=== PATIENT | female | born 1945 | race African-American/Black ===

== ENCOUNTER 2017-02-12 11:08 | Inpatient (IN) | payer MEDICARE, OTHER ==
[~2017-02-12] VITALS: Ht 165.1 cm; Wt 93.4 kg
[~2017-02-12 11:08] MED LIST: AMLO10TA4 PO; ASPI81TA31 PO; LORA1TAB PO; METF10002 PO; TRAM50TA2 PO
[2017-02-12 14:30] VITALS: BP 126/78
[2017-02-12] MEDS: FUROSEMIDE 40 MG TABLET PO SCH (17:22)
[2017-02-12] MEDS: hydrALAZINE HCL 50 MG TABLET PO SCH (17:25)
[2017-02-12] MEDS: ISOSORBIDE DINITRATE 20 MG TABLET PO SCH (17:27)
[2017-02-12] MEDS: CARVEDILOL 25 MG TABLET PO SCH (17:29)
[2017-02-12] MEDS: ATORVASTATIN 20 MG TABLET PO SCH (20:56)
[2017-02-12] MEDS: FERROUS SULFATE 325 MG TABEC PO SCH (20:56)
[2017-02-13 00:10] VITALS: BP 120/69
[2017-02-13 08:20] VITALS: BP 158/82
[2017-02-13] MEDS: CARVEDILOL 25 MG TABLET PO SCH ×2 (08:47→17:10)
[2017-02-13] MEDS: ASPIRIN 81 MG TAB.CHEW PO SCH (08:48)
[2017-02-13] MEDS: hydrALAZINE HCL 50 MG TABLET PO SCH ×3 (08:48→17:10)
[2017-02-13] MEDS: AMLODIPINE 10 MG TABLET PO SCH (08:48)
[2017-02-13] MEDS: ISOSORBIDE DINITRATE 20 MG TABLET PO SCH ×3 (08:49→17:11)
[2017-02-13] MEDS: FUROSEMIDE 40 MG TABLET PO SCH ×2 (08:49→17:10)
[2017-02-13] MEDS: FERROUS SULFATE 325 MG TABEC PO SCH ×2 (08:49→20:21)
[2017-02-13] MEDS: ATORVASTATIN 20 MG TABLET PO SCH (20:21)
[2017-02-13] MEDS: ZOLPIDEM 5 MG TABLET PO PRN (23:16)
[2017-02-13] MEDS ORDERED: ZOLPIDEM 5 MG TABLET ONE (23:22)
[2017-02-13 23:44] VITALS: BP 127/56
[2017-02-14 07:47] VITALS: BP 142/62
[2017-02-14] MEDS: FERROUS SULFATE 325 MG TABEC PO SCH ×2 (09:54→20:45)
[2017-02-14] MEDS: AMLODIPINE 10 MG TABLET PO SCH (09:54)
[2017-02-14] MEDS: ASPIRIN 81 MG TAB.CHEW PO SCH (09:54)
[2017-02-14] MEDS: FUROSEMIDE 40 MG TABLET PO SCH ×2 (09:54→17:43)
[2017-02-14] MEDS: CARVEDILOL 25 MG TABLET PO SCH ×2 (09:54→17:44)
[2017-02-14] MEDS: ISOSORBIDE DINITRATE 20 MG TABLET PO SCH ×3 (09:55→17:44)
[2017-02-14] MEDS: hydrALAZINE HCL 50 MG TABLET PO SCH ×3 (09:55→17:43)
[2017-02-14 12:56] VITALS: BP 114/55
[2017-02-14 20:00] VITALS: BP 137/61
[2017-02-14] MEDS: ATORVASTATIN 20 MG TABLET PO SCH (20:45)
[2017-02-14] MEDS: ZOLPIDEM 5 MG TABLET PO PRN (22:48)
[2017-02-15] MEDS: CARVEDILOL 25 MG TABLET PO SCH ×2 (08:03→17:59)
[2017-02-15] MEDS: hydrALAZINE HCL 50 MG TABLET PO SCH ×3 (09:28→17:04)
[2017-02-15] MEDS: AMLODIPINE 10 MG TABLET PO SCH (09:28)
[2017-02-15] MEDS: FERROUS SULFATE 325 MG TABEC PO SCH ×2 (09:29→20:17)
[2017-02-15] MEDS: ASPIRIN 81 MG TAB.CHEW PO SCH (09:29)
[2017-02-15] MEDS: FUROSEMIDE 40 MG TABLET PO SCH ×2 (09:29→17:04)
[2017-02-15] MEDS: ISOSORBIDE DINITRATE 20 MG TABLET PO SCH ×3 (09:30→17:00)
[2017-02-15 12:30] VITALS: BP 133/61
[2017-02-15 20:00] VITALS: BP 131/61
[2017-02-15] MEDS: ATORVASTATIN 20 MG TABLET PO SCH (20:17)
[2017-02-15] MEDS: ZOLPIDEM 5 MG TABLET PO PRN (23:30)
[2017-02-16] MEDS: ASPIRIN 81 MG TAB.CHEW PO SCH (08:19)
[2017-02-16] MEDS: CARVEDILOL 25 MG TABLET PO SCH ×2 (08:20→17:53)
[2017-02-16] MEDS: FERROUS SULFATE 325 MG TABEC PO SCH ×2 (08:20→23:05)
[2017-02-16] MEDS: hydrALAZINE HCL 50 MG TABLET PO SCH ×3 (08:20→17:00)
[2017-02-16] MEDS: AMLODIPINE 10 MG TABLET PO SCH (08:21)
[2017-02-16] MEDS: FUROSEMIDE 40 MG TABLET PO SCH ×2 (08:21→17:47)
[2017-02-16] MEDS: ISOSORBIDE DINITRATE 20 MG TABLET PO SCH ×3 (08:29→17:52)
[2017-02-16 09:56] VITALS: BP 140/71
[2017-02-16 19:30] VITALS: BP 138/69
[2017-02-16 22:17] VITALS: BP 127/59
[2017-02-16] MEDS: ZOLPIDEM 5 MG TABLET PO PRN (23:05)
[2017-02-16] MEDS: ATORVASTATIN 20 MG TABLET PO SCH (23:05)
[2017-02-17] MEDS: CARVEDILOL 25 MG TABLET PO SCH ×2 (08:00→18:00)
[2017-02-17] MEDS: hydrALAZINE HCL 50 MG TABLET PO SCH ×3 (08:48→17:00)
[2017-02-17] MEDS: AMLODIPINE 10 MG TABLET PO SCH (08:50)
[2017-02-17] MEDS: FUROSEMIDE 40 MG TABLET PO SCH ×2 (08:51→18:21)
[2017-02-17] MEDS: FERROUS SULFATE 325 MG TABEC PO SCH ×2 (08:51→20:46)
[2017-02-17] MEDS: ASPIRIN 81 MG TAB.CHEW PO SCH (08:51)
[2017-02-17] MEDS: ISOSORBIDE DINITRATE 20 MG TABLET PO SCH ×3 (08:52→17:00)
[2017-02-17 14:10] VITALS: BP 126/66
[2017-02-17] MEDS: ATORVASTATIN 20 MG TABLET PO SCH (20:46)
[2017-02-17 21:15] VITALS: BP 143/65
[2017-02-17] MEDS: ZOLPIDEM 5 MG TABLET PO PRN (22:59)
[2017-02-18 08:45] VITALS: BP 165/86
[2017-02-18] MEDS: CARVEDILOL 25 MG TABLET PO SCH (08:57)
[2017-02-18] MEDS: ASPIRIN 81 MG TAB.CHEW PO SCH (08:58)
[2017-02-18] MEDS: FERROUS SULFATE 325 MG TABEC PO SCH (08:58)
[2017-02-18] MEDS: hydrALAZINE HCL 50 MG TABLET PO SCH ×2 (08:58→13:00)
[2017-02-18] MEDS: ISOSORBIDE DINITRATE 20 MG TABLET PO SCH ×2 (08:59→13:00)
[2017-02-18] MEDS: FUROSEMIDE 40 MG TABLET PO SCH (08:59)
[2017-02-18] MEDS: AMLODIPINE 10 MG TABLET PO SCH (08:59)
[2017-02-18] MEDS ORDERED: CLONIDINE TTS 2 PATCH TD SCH (09:00)
[2017-02-18] MEDS ORDERED: METF-495 PO (12:37)
[2017-02-18] MEDS ORDERED: METF10002 PO (12:38)
[2017-02-18 13:00] VITALS: BP 115/63
[2017-02-18] MEDS ORDERED: CLONIDINE-TTS 1 PATCH TD SCH (16:00)
== END 2017-02-18 14:30 | disposition home or self-care (01) | DRG 291 ==
PROVIDERS: ADMIT Physical Medicine & Rehabilitation Pain Medicine; ATTEND Physical Medicine & Rehabilitation Pain Medicine
DX: I13.0 Hypertensive heart and chronic kidney disease with heart failure and stage 1 through stage 4 chronic kidney disease, or unspecified chronic kidney disease (principal); I50.33 Acute on chronic diastolic (congestive) heart failure; N18.2 Chronic kidney disease, stage 2 (mild); E66.9 Obesity, unspecified; Z68.34 Body mass index [BMI] 34.0-34.9, adult; Z90.5 Acquired absence of kidney; Z87.442 Personal history of urinary calculi; E78.5 Hyperlipidemia, unspecified; K21.9 Gastro-esophageal reflux disease without esophagitis; G89.29 Other chronic pain; M54.5 Low back pain; I25.2 Old myocardial infarction; Z88.6 Allergy status to analgesic agent; Z88.1 Allergy status to other antibiotic agents; Z88.0 Allergy status to penicillin; Z88.2 Allergy status to sulfonamides; Z88.8 Allergy status to other drugs, medicaments and biological substances
CPT/HCPCS: 92506; 97001; 97003; 97110; 97112; 97116; 97530; 97535; A4663

== ENCOUNTER 2017-05-14 19:03 | Inpatient (IN) | payer MEDICARE, OTHER ==
[~2017-05-14] VITALS: Ht 165.1 cm; Wt 90.3 kg
[~2017-05-14 19:03] MED LIST changes: -TRAM50TA2 PO
[2017-05-14 20:00] VITALS: BP 131/68
[2017-05-15] VITALS (13 sets, daily range): BP systolic 113–167; BP diastolic 49–88
[2017-05-15] MEDS ORDERED: ZOLP5TAB8 PO (00:03)
[2017-05-15] MEDS ORDERED: ATOR20TA PO (00:03)
[2017-05-15] MEDS ORDERED: NIFE30TA89 PO (00:03)
[2017-05-15] MEDS ORDERED: PANT40TA4 PO (00:03)
[2017-05-15] MEDS ORDERED: DOXA2TAB2 PO (00:03)
[2017-05-15] MEDS ORDERED: ENOX40DI SQ (00:03)
[2017-05-15] MEDS ORDERED: CLON0.3T PO (00:03)
[2017-05-15] MEDS ORDERED: ISOS40TA16 PO (00:03)
[2017-05-15] MEDS ORDERED: CARI350T27 PO (00:03)
[2017-05-15] MEDS ORDERED: CARV25TA2 PO (00:03)
[2017-05-15] MEDS ORDERED: HYDR100T27 PO (00:03)
--- NOTE | 2017-05-15 00:05 | NUR ---
HOME MED LIST COMPLETED. DR KATHI VIDAL NOTIFIED TO COMPLETE THE MED RECONCILIATION PART FOR THIS PATIENT. HE STATED " HE DOESN'T KNOW THIS PATIENT AND IT WILL NEED TO BE DONE IN THE MORNING BY WHOEVER DOES THE H&P.TMS PRINTED AND PLACED IN THE HARD CHART.
[2017-05-15] MEDS: ZOLPIDEM 5 MG TABLET PO PRN (00:20)
[2017-05-15] MEDS ORDERED: ZOLPIDEM 5 MG TABLET ONE (00:30)
--- NOTE | 2017-05-15 06:00 | NUR ---
1930-PT RECEIVED FROM [facility], PT ALERT ,ORIENTED, AMBULATES WITH CANE. DENIES ANY PAIN, SOB ON EXERTION KEPT ON 2 LITERS OXYGEN OVERNIGHT, NO ACUTE DISTRESS. HAD BED BATH, ASSISTED WITH ALL NEEDS ,SKIN INTACT AND DRY.AWAITING FOR ORDERS TODAY , ESTUARDO VIDAL NO GIVING ORDERS AND WILL F/FUP WITH EPIC IN AM.VSS,AFEBRILE, ALL NEEDS ATTENDED, SLEPT WELL AFTER AMBIEN GIVEN.WILL CONTINUE TO MONITOR CALL LIGHT AT REACHED.
[2017-05-15] MEDS ORDERED: ZOLPIDEM 5 MG TABLET PO PRN (08:00)
[2017-05-15] MEDS: ASPIRIN 81 MG TAB.CHEW PO SCH (09:23)
[2017-05-15] MEDS: NIFEdipine XL 30 MG TABSR PO SCH (09:23)
[2017-05-15] MEDS: CARISOPRODOL 350 MG TABLET PO SCH ×3 (09:23→17:00)
[2017-05-15] MEDS: CARVEDILOL 25 MG TABLET PO SCH ×2 (09:23→21:31)
[2017-05-15 09:30] LABS: BASOPHILS % (AUTO) 0.2 % (0.0-2.0); EOSINOPHILS # (AUTO) 1.3 K/uL (0.0-0.7); EOSINOPHILS % (AUTO) 19.5 % (0.0-7.0); HEMOGLOBIN 7.6 G/DL (12.0-16.0); LYMPHOCYTES # (AUTO) 0.5 K/UL (0.8-4.8); LYMPHOCYTES % (AUTO) 8.1 % (20.5-51.5); MEAN CORPUSCULAR HEMOGLOBIN 26.1 UUG (27.0-31.0); MEAN CORPUSCULAR HGB CONC 32 g/dL (32.0-37.0); MEAN CORPUSCULAR VOLUME 80.7 FL (81.0-99.0); MONOCYTES # (AUTO) 0.3 K/UL (0.1-1.30); MONOCYTES % (AUTO) 5.1 % (0.0-11.0); NEUTROPHILS # (AUTO) 4.6 K/UL (1.8-8.9); NEUTROPHILS % (AUTO) 67.1 % (38.5-71.5); PLATELET COUNT (AUTO) 245 K/UL (150-450); RED BLOOD CELL COUNT(AUTO) 2.89 MIL/UL (4.2-5.4); WHITE BLOOD COUNT (AUTO) 6.7 K/UL (4.0-11.2)
[2017-05-15 09:38] LABS: CARBON DIOXIDE 25 mmol/L (21-32); CHLORIDE 107 mmol/L (98-107); CREATININE 2.1 mg/dL (0.6-1.3); GLUCOSE 150 mg/dL (74-106); MAGNESIUM 2.4 mg/dL (1.8-2.4); PHOSPHOROUS 4.5 mg/dL (2.5-4.9); UREA NITROGEN, BLOOD 34 mg/dL (7-18)
[2017-05-15 09:40] LABS: HEMATOCRIT 23.4 % (37-47)
[2017-05-15 09:54] LABS: EOSINOPHILS % (MANUAL) 17 % (0-8); LYMPHOCYTES % (MANUAL) 8 % (20-40); MONOCYTES % (MANUAL) 1 % (2-10); NEUTROPHILS % (MANUAL) 74 % (42-75)
[2017-05-15] MEDS ORDERED: ENOXAPARIN SODIUM 40 MG/0.4 ML DISP.SYRIN SQ SCH (09:54)
--- NOTE | 2017-05-15 10:00 | NUR ---
CRITICAL LAB VALUE REPORTED TO DR. STRONG HCT-23.[address] ORDERED FOR OB ONCE, PRBCS 2 UNITS. LASIX 20 MG IV PUSH BETWEEN PRBC UNITS
[2017-05-15] MEDS ORDERED: FUROSEMIDE 20 MG/2 ML VIAL IV PRN (10:30)
--- NOTE | 2017-05-15 12:27 | NUR ---
ordered blood transfusion. consent signed. all orders done including type and screen with 2 PRBC ordered. red band on. all checks done. Ariel MAHAN from emergency called to insert IV. recommended to have a midline. MD Ramírez ordered for a midline insertion. notified flor supervisor roving department. was intructed to call for midline nurse.
[2017-05-15] MEDS: hydrALAZINE HCL 50 MG TABLET PO SCH ×2 (13:05→21:32)
--- NOTE | 2017-05-15 13:14 | NUR ---
FOLLOW UP MIDLINE INSERTION FOR PATIENT. INFORMED CARYN INTELLIGENCE INTERN
--- NOTE | 2017-05-15 16:00 | NUR ---
FOLLOW UP MIDLINE INSERTION WITH CARYN, COMPUTER NETWORK AND SYSTEMS ENGINEER. SAYS NEGRITO TRUONG ON HIS WAY FOR INSERTION
--- NOTE | 2017-05-15 17:20 | NUR ---
MIDLINE INSERTED BY ALEXI/NEGRITO OVER LEFT UPPER ARM. PATENT
--- NOTE | 2017-05-15 17:46 | NUR ---
BLOOD TRANSFUSION STARTED ABOUT 350 ML TO RUN AT 125ML/HR WITH UNIT # [id number]. VERIFIED AND WITNESSED BY YOON/RN AND FITO/RN.
--- NOTE | 2017-05-15 18:30 | NUR ---
Blood infusing well. No SOB, itching or other S/S of adverse reaction noted. V/S checked,WNL. Offered Soma, but patient refused medication, even after discussion of risks and benefits. Patient refused to take anything because said she is having blood transfusion
[2017-05-15] MEDS: DOXAZOSIN 2 MG TABLET PO SCH (21:31)
[2017-05-15] MEDS: ISOSORBIDE DINITRATE 20 MG TABLET PO SCH (21:32)
[2017-05-15] MEDS: ATORVASTATIN 20 MG TABLET PO SCH (21:34)
--- NOTE | 2017-05-15 22:40 | NUR ---
c/o bleeding noted from right nostril, ice pack placed overhead, packing applied and bleeding stop after few minutes. vss,afebrile.
--- NOTE | 2017-05-15 23:45 | NUR ---
completed second unit of PRBC without any adverse effects,vss,afebrile. all needs attended call light at reached.
[2017-05-16] MEDS: ZOLPIDEM 5 MG TABLET PO PRN ×2 (00:10→22:57)
[2017-05-16] MEDS: PANTOPRAZOLE SODIUM 40 MG TABLET.DR PO SCH (05:27)
[2017-05-16] MEDS: hydrALAZINE HCL 50 MG TABLET PO SCH ×3 (05:36→22:00)
--- NOTE | 2017-05-16 06:37 | NUR ---
pt slept after ambien, no more episode of nosebleed, ambulates to bathroom and have bm, am care assisted. verbalized slight sob when ambulating without oxygen but no acute distress. will continue to monitor.vss,afebrile
[2017-05-16 08:50] VITALS: BP 141/71
[2017-05-16] MEDS: ISOSORBIDE DINITRATE 20 MG TABLET PO SCH ×2 (09:43→21:26)
[2017-05-16] MEDS: NIFEdipine XL 30 MG TABSR PO SCH (09:44)
[2017-05-16] MEDS: ASPIRIN 81 MG TAB.CHEW PO SCH (09:45)
[2017-05-16] MEDS: CARVEDILOL 25 MG TABLET PO SCH ×2 (09:45→21:26)
[2017-05-16] MEDS: CARISOPRODOL 350 MG TABLET PO SCH ×3 (09:45→17:00)
[2017-05-16] MEDS: ENOXAPARIN SODIUM 30 MG/0.3 ML DISP.SYRIN SQ SCH (09:47)
--- NOTE | 2017-05-16 10:00 | NUR ---
Dr. Ramírez in the unit with order to test stool for C-diff. Order carried out. Patient made aware.
[2017-05-16 14:09] LABS: *OCCULT BLOOD STOOL POSITIVE (NEGATIVE)
--- NOTE | 2017-05-16 14:46 | NUR ---
DAILY NOTE ORDER FOR STOOL FOR CDIFF X1 COMPLETED ORDERED. SPECIMEN SENT TO THE LAB. SHE HAS HAD 3 EPISODES OF DIARRHEA THROUGHOUT THE SHIFT SO FAR.
--- NOTE | 2017-05-16 19:30 | NUR ---
PT ALERT AND ORIENTED IN BED. NO DISTRESS NOTED. MIDLINE INTACT. FAMILY AT BEDSIDE. SAFETY MAINTAINED. CALL LIGHT WITHIN REACH. BED ALARM ON. WILL CONTINUE TO MONITOR.
[2017-05-16 20:13] VITALS: BP 142/73
[2017-05-16] MEDS: ATORVASTATIN 20 MG TABLET PO SCH (21:24)
[2017-05-16] MEDS: DOXAZOSIN 2 MG TABLET PO SCH (21:25)
[2017-05-17] MEDS: hydrALAZINE HCL 50 MG TABLET PO SCH ×3 (05:32→22:00)
[2017-05-17] MEDS: PANTOPRAZOLE SODIUM 40 MG TABLET.DR PO SCH (06:39)
--- NOTE | 2017-05-17 06:53 | NUR ---
PT ALERT AND ORIENTED IN BED. NO DISTRESS NOTED. MIDLINE INTACT. NO SIGNIFICANT CHANGES THROUGHOUT THE NIGHT. SAFETY MAINTAINED. CALL LIGHT WITHIN REACH.
[2017-05-17 07:30] VITALS: BP 177/95
[2017-05-17 07:42] LABS: BASOPHILS % (AUTO) 0.5 % (0.0-2.0); EOSINOPHILS # (AUTO) 1.3 K/uL (0.0-0.7); EOSINOPHILS % (AUTO) 17.9 % (0.0-7.0); LYMPHOCYTES # (AUTO) 0.6 K/UL (0.8-4.8); LYMPHOCYTES % (AUTO) 8.4 % (20.5-51.5); MEAN CORPUSCULAR HEMOGLOBIN 27.4 UUG (27.0-31.0); MEAN CORPUSCULAR HGB CONC 33 g/dL (32.0-37.0); MEAN CORPUSCULAR VOLUME 83.5 FL (81.0-99.0); MONOCYTES # (AUTO) 0.4 K/UL (0.1-1.30); MONOCYTES % (AUTO) 6.2 % (0.0-11.0); NEUTROPHILS # (AUTO) 4.9 K/UL (1.8-8.9); PLATELET COUNT (AUTO) 276 K/UL (150-450); WHITE BLOOD COUNT (AUTO) 7.2 K/UL (4.0-11.2)
[2017-05-17 07:53] LABS: RED BLOOD CELL COUNT(AUTO) 3.57 MIL/UL (4.2-5.4)
[2017-05-17 07:54] LABS: HEMATOCRIT 29.8 % (37-47); HEMOGLOBIN 9.8 G/DL (12.0-16.0)
[2017-05-17 08:06] LABS: ALANINE AMINOTRANSFERASE 15 U/L (14-59); ALKALINE PHOSPHATASE 40 U/L (50-136); ASPARTATE AMINOTRANSFERASE 14 U/L (15-37); BILIRUBIN,TOTAL 0.3 mg/dL (0.2-1.0); CARBON DIOXIDE 25 mmol/L (21-32); CHLORIDE 110 mmol/L (98-107); CREATININE 1.9 mg/dL (0.6-1.3); GLUCOSE 152 mg/dL (74-106); MAGNESIUM 2.2 mg/dL (1.8-2.4); PHOSPHOROUS 3.6 mg/dL (2.5-4.9); POTASSIUM 3.8 mmol/L (3.5-5.1); TOTAL PROTEIN, SERUM 7.2 g/dL (6.4-8.2); UREA NITROGEN, BLOOD 34 mg/dL (7-18)
[2017-05-17] MEDS: ISOSORBIDE DINITRATE 20 MG TABLET PO SCH ×2 (09:32→20:53)
[2017-05-17] MEDS: CARISOPRODOL 350 MG TABLET PO SCH ×3 (09:33→17:00)
[2017-05-17] MEDS: ASPIRIN 81 MG TAB.CHEW PO SCH (09:33)
[2017-05-17] MEDS: CARVEDILOL 25 MG TABLET PO SCH ×2 (09:33→20:52)
[2017-05-17] MEDS: NIFEdipine XL 30 MG TABSR PO SCH (09:33)
[2017-05-17] MEDS: ENOXAPARIN SODIUM 30 MG/0.3 ML DISP.SYRIN SQ SCH (09:37)
[2017-05-17] MEDS ORDERED: LOPERAMIDE HCL 2 MG CAPSULE PO PRN (12:30)
[2017-05-17] MEDS: LORAZEPAM 0.5 MG TABLET PO PRN (12:48)
[2017-05-17 19:52] VITALS: BP 127/60
[2017-05-17] MEDS: ATORVASTATIN 20 MG TABLET PO SCH (20:49)
[2017-05-17] MEDS: DOXAZOSIN 2 MG TABLET PO SCH (20:50)
[2017-05-17] MEDS: ZOLPIDEM 5 MG TABLET PO PRN (23:44)
[2017-05-18] MEDS: hydrALAZINE HCL 50 MG TABLET PO SCH ×3 (06:48→21:21)
[2017-05-18] MEDS: PANTOPRAZOLE SODIUM 40 MG TABLET.DR PO SCH (06:49)
[2017-05-18 07:30] VITALS: BP 129/59
[2017-05-18] MEDS: CARISOPRODOL 350 MG TABLET PO SCH ×3 (08:37→17:00)
[2017-05-18] MEDS: ISOSORBIDE DINITRATE 20 MG TABLET PO SCH ×2 (08:37→21:21)
[2017-05-18] MEDS: NIFEdipine XL 30 MG TABSR PO SCH (08:38)
[2017-05-18] MEDS: CARVEDILOL 25 MG TABLET PO SCH ×2 (08:38→21:21)
[2017-05-18] MEDS: ASPIRIN 81 MG TAB.CHEW PO SCH (08:38)
[2017-05-18] MEDS: ENOXAPARIN SODIUM 30 MG/0.3 ML DISP.SYRIN SQ SCH (08:39)
[2017-05-18] MEDS: LORAZEPAM 0.5 MG TABLET PO PRN ×2 (08:43→21:20)
[2017-05-18] MEDS ORDERED: DEXTROSE 50% 50 ML DISP.SYRIN IV PRN (09:45)
[2017-05-18] MEDS: BLOOD SUGAR DIAGNOSTIC 1 EACH STRIP VI SCH ×3 (11:43→21:17)
[2017-05-18] MEDS: INSULIN REGULAR, HUMAN 300 UNIT/3 ML VIAL SQ PRN (12:05)
[2017-05-18 12:18] LABS: *BILIRUBIN,URIN NEGATIVE (NEGATIVE); *BLOOD, URINE NEGATIVE (NEGATIVE); *CLARITY,URINE CLOUDY (CLEAR); *COLOR,URINE YELLOW (YELLOW); *KETONES,URINE NEGATIVE (NEGATIVE); *UROBILINOGEN,URINE 0.2 E.U./dl (NORMAL); LEUKOCYTE ESTERASE ,URINE 3+ (NEGATIVE); NITRITE, URINE NEGATIVE (NEGATIVE); UGLUCOSE NEGATIVE (NEGATIVE)
[2017-05-18 12:29] LABS: *PROTEIN,URINE 3+ (NEGATIVE)
[2017-05-18 12:30] LABS: BACTERIA,URINE MANY /HPF (NONE SEEN); SQUAMOUS EPITHELIAL CELL,UR MODERATE /HPF (NONE SEEN); WBC,URINE TNTC /HPF (0-3)
--- NOTE | 2017-05-18 13:30 | NUR ---
Director Education SW met with patient at [facility] to assess pt needs and provide support. The patient is a 71 year old female who was admitted for generalized weakness and functional decline. The patient has CHF, HTN, and DM. She has had swelling in her leg and SOB, with failed outpatient therapy. The patient was sitting on her bed during the assessment. She was calm and cooperative during the interview. The patient's mood was somewhat depressed and irritable. The patient stated that her sleep has not been very good as well as her appetite. Per pt, she lives with her granddaughter in [place]. The patient acknowledged her condition and the need for intervention. The patient stated that she has strong social support from her granddaughter and daughter Emily Michael but that she does not want them to be contacted at this time. Social history: The patient stated that she was born and raised in [place] and grew up with her parents. She stated that she moved to [place] 20-30 years ago. The patient completed high school and one year of college. 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 The patient denied any history of abuse or domestic violence. The patient denied any history of drug or alcohol abuse. The patient stated that she would like to return home with her granddaughter upon discharge. SW engaged in active listening and provided supportive counseling during the interview to address patient's depressive symptoms related to her decline in functioning. SW will continue to address issues of loss related to recent hospitalization. SW will encourage compliance with rehab goals. SW will be available as needed.
--- NOTE | 2017-05-18 13:32 | NUR ---
pt refused soma. explained benefits and risks. pt continued to refuse. will reassess for complications.
[2017-05-18 14:10] VITALS: BP 123/60
[2017-05-18 16:20] VITALS: BP 139/76
--- NOTE | 2017-05-18 17:08 | NUR ---
pt refuses Soma. pt states that it makes her sleepy and tired. explained risks and benefits. will continue to reassess for complications.
--- NOTE | 2017-05-18 18:58 | NUR ---
PT REFUSED SOMA BECAUSE IT MAKES HER SLEEPY. PT PARTICIPATED IN THERAPY. NEEDS ATTENDED TO. PT TOOK OTHER MEDS PRESCRIBED. PT BP AND BLOOD SUGAR CONTROLLED THROUGH MEDS. PT HAD NO SIGNS OF ACUTE DISTRESS. COMFORT MEASURES GIVEN. WILL ENDORSE NEW ORDERS TO X RAY SERVICE TECHNICIAN NURSE.
--- NOTE | 2017-05-18 19:30 | NUR ---
RECEIVED PATIENT AWAKE, ALERT, AND ORIENTED X4. BRP WITH STANDBY ASSIST. IN BATHROOM DOING PM CARE WITH MINIMAL ASSIST. DISCUSSED SIGNS AND SYMPTOMS OF HYPO/HYPERGLYCEMIA. PATIENT VERBALIZES UNDERSTANDING.NO FURTHER DIARRHEA TONIGHT.INSTRUCTED TO CALL FOR ANY NEEDS OR CONCERNS. VERBALIZES GOOD UNDERSTANDING. CALL LIGHT WITHIN REACH AAT. IN NO APPARENT DISTRESS AT THIS TIME. ON OXYGEN AT 2 LPM/NASAL CANNULA WITH SATS AT 94%. BORDERLINE SATS ON ROOM AIR OF 91-92%. NO RESPIRATORY DISTRESS COMPLAINTS.
[2017-05-18 20:00] VITALS: BP 148/68
[2017-05-18] MEDS ORDERED: ATORVASTATIN 20 MG TABLET PO SCH (21:00)
[2017-05-18] MEDS: ATORVASTATIN 10 MG TABLET PO SCH (21:17)
[2017-05-18] MEDS: DOXAZOSIN 2 MG TABLET PO SCH (21:20)
[2017-05-18] MEDS: ZOLPIDEM 5 MG TABLET PO PRN (23:25)
--- NOTE | 2017-05-19 06:00 | NUR ---
SLEPT FAIRLY WELL TONIGHT AFTER AMBIEN GIVEN. NO RESPIRATORY DISTRESS ON O2 AT 2 LPM/NASAL CANNULA. NO C/O SOB WITHOUT OXYGEN WHEN AMBULATING TO TOILET. CONTINENT THROUGHOUT THE SHIFT. LESS EDEMA IN BOTH ANKLES OVERNIGHT WHILE THEM BEING ELEVATED WHILE IN BED.COMFORTABLE THIS MORNING WITHOUT C/O DISCOMFORT AT PRESENT. CALL LIGHT CONTINUES TO BE WITHIN REACH
[2017-05-19 06:37] VITALS: BP 154/78
[2017-05-19] MEDS: hydrALAZINE HCL 50 MG TABLET PO SCH ×3 (06:48→22:22)
[2017-05-19] MEDS: PANTOPRAZOLE SODIUM 40 MG TABLET.DR PO SCH (06:48)
[2017-05-19] MEDS: BLOOD SUGAR DIAGNOSTIC 1 EACH STRIP VI SCH ×4 (06:49→20:15)
[2017-05-19 07:30] VITALS: BP 124/55
[2017-05-19 08:14] LABS: BASOPHILS % (AUTO) 0.6 % (0.0-2.0); EOSINOPHILS # (AUTO) 1.8 K/uL (0.0-0.7); EOSINOPHILS % (AUTO) 23.6 % (0.0-7.0); HEMATOCRIT 28.4 % (37-47); HEMOGLOBIN 9.3 G/DL (12.0-16.0); LYMPHOCYTES # (AUTO) 0.8 K/UL (0.8-4.8); LYMPHOCYTES % (AUTO) 10.1 % (20.5-51.5); MEAN CORPUSCULAR HEMOGLOBIN 26.9 UUG (27.0-31.0); MEAN CORPUSCULAR HGB CONC 33 g/dL (32.0-37.0); MEAN CORPUSCULAR VOLUME 82.2 FL (81.0-99.0); MONOCYTES # (AUTO) 0.4 K/UL (0.1-1.30); MONOCYTES % (AUTO) 5.4 % (0.0-11.0); NEUTROPHILS # (AUTO) 4.5 K/UL (1.8-8.9); NEUTROPHILS % (AUTO) 60.3 % (38.5-71.5); PLATELET COUNT (AUTO) 290 K/UL (150-450); RED BLOOD CELL COUNT(AUTO) 3.45 MIL/UL (4.2-5.4); WHITE BLOOD COUNT (AUTO) 7.5 K/UL (4.0-11.2)
[2017-05-19] MEDS: NIFEdipine XL 30 MG TABSR PO SCH (08:45)
[2017-05-19] MEDS: ASPIRIN 81 MG TAB.CHEW PO SCH (08:46)
[2017-05-19] MEDS: CARVEDILOL 25 MG TABLET PO SCH ×2 (08:46→20:11)
[2017-05-19] MEDS: ISOSORBIDE DINITRATE 20 MG TABLET PO SCH ×2 (08:47→20:11)
[2017-05-19] MEDS: CARISOPRODOL 350 MG TABLET PO SCH ×3 (08:56→16:50)
[2017-05-19] MEDS ORDERED: FOSFOMYCIN TROMETHAMINE 3 GM PACKET PO ONE (09:00)
[2017-05-19] MEDS: ENOXAPARIN SODIUM 30 MG/0.3 ML DISP.SYRIN SQ SCH (09:01)
[2017-05-19 09:08] LABS: EOSINOPHILS % (MANUAL) 27 % (0-8); LYMPHOCYTES % (MANUAL) 17 % (20-40); MONOCYTES % (MANUAL) 3 % (2-10); NEUTROPHILS % (MANUAL) 53 % (42-75)
--- NOTE | 2017-05-19 09:30 | NUR ---
PT SEEN BY DR POTTER RECOMMENDED BY DOCTOR TAE. STATES THAT PT HAS MULTIPLE ALLERGIES AND WAS NOT TREATED FOR UTI BECAUSE OF IT. RECOMMENDED MORUNOL. 12 ML SPOON GIVEN TO CHECK FOR ALLERGIC REACTION. NO ALLERGIC REACTIONS SEEN. NO SYMPTOMS STATED. WILL CONTINUE TO REASSESS FOR REACTIONS
--- NOTE | 2017-05-19 10:00 | NUR ---
PT HAD NO SIGNS OF ALLERGIC REACTIONS.
[2017-05-19] MEDS: INSULIN REGULAR, HUMAN 300 UNIT/3 ML VIAL SQ PRN ×2 (11:55→20:15)
--- NOTE | 2017-05-19 17:28 | NUR ---
pt had no signs of distress during shift. pt continues to be cold throughout the day. pt blood levels improve. new labs drawn and results came in today. pt was cooperative with therapy. blood sugar controlled with meds. 2 units given at most and pt did not have insulin in afternoon. pt seen by md and had new antibiotics. pt still has uti and will continue to monitor for complications. will endorse new results to maintenance supervisor 2nd shift nurse.
--- NOTE | 2017-05-19 20:05 | NUR ---
RECEIVED PATIENT AWAKE IN BED. A/O X4. PATIENT ASKING FOR ATIVAN. GIVE ATIVAN 1MG PO PRN FOR ANXIETY. MID-LINE NOTED TO LEFT UPPER ARM, INTACT. DENIES PAIN OR DISCOMFORT. NO RESP. DISTRESS NOTED. CALL LIGHT IN REACH. ALL NEEDS ATTENDED. WILL CONTINUE TO MONITOR.
[2017-05-19] MEDS: DOXAZOSIN 2 MG TABLET PO SCH (20:09)
[2017-05-19] MEDS: ATORVASTATIN 10 MG TABLET PO SCH (20:09)
[2017-05-19] MEDS: LORAZEPAM 1 MG TABLET PO PRN (20:09)
--- NOTE | 2017-05-19 21:30 | NUR ---
MULTIPLE SMALL SKIN TEARS NOTED TO RIGHT UPPER ARM AND EXCORIATION AND REDNESS NOTED TO RIGHT SIDE, ABDOMINAL FOLD. PICTURES TAKEN AND PLACED IN CHART.
[2017-05-20] MEDS: ZOLPIDEM 5 MG TABLET PO PRN ×2 (00:02→23:45)
[2017-05-20] MEDS: hydrALAZINE HCL 50 MG TABLET PO SCH ×3 (06:02→22:00)
[2017-05-20] MEDS: BLOOD SUGAR DIAGNOSTIC 1 EACH STRIP VI SCH ×4 (06:32→20:22)
[2017-05-20] MEDS: PANTOPRAZOLE SODIUM 40 MG TABLET.DR PO SCH (06:32)
--- NOTE | 2017-05-20 06:54 | NUR ---
PATIENT AWAKE IN BED. SLEPT AT INTERVALS. DENIES PAIN OR DISCOMFORT. BED ALARM ON. CALL LIGHT IN REACH. WILL CONTINUE TO MONITOR.
[2017-05-20 08:00] VITALS: BP 129/58
[2017-05-20] MEDS: ASPIRIN 81 MG TAB.CHEW PO SCH (08:54)
[2017-05-20] MEDS: ISOSORBIDE DINITRATE 20 MG TABLET PO SCH ×2 (08:54→21:13)
[2017-05-20] MEDS: NIFEdipine XL 30 MG TABSR PO SCH (08:55)
[2017-05-20] MEDS: CARISOPRODOL 350 MG TABLET PO SCH ×3 (08:55→17:00)
[2017-05-20] MEDS: ENOXAPARIN SODIUM 30 MG/0.3 ML DISP.SYRIN SQ SCH (08:56)
[2017-05-20] MEDS: CARVEDILOL 25 MG TABLET PO SCH ×2 (09:00→21:00)
[2017-05-20] MEDS: INSULIN REGULAR, HUMAN 300 UNIT/3 ML VIAL SQ PRN ×3 (12:06→20:55)
--- NOTE | 2017-05-20 13:08 | NUR ---
pt refused soma. pt states that it makes her weak and sleepy. explained risks and benefits. will continue to assess for complications.
--- NOTE | 2017-05-20 13:51 | NUR ---
TEAM CONFERENCE MEETING 05/20/17
[2017-05-20] MEDS ORDERED: CEPHALEXIN MONOHYDRATE 250 MG CAPSULE PO SCH (16:30)
--- NOTE | 2017-05-20 19:25 | NUR ---
pt complains of pain during shift. md notified. md ordered percocet but pt is allergic. pt adhered to meds but refused soma. no signs of complications. pt seen by dr lennon and said to follow up with urinalysis in a week. all results on chart. adhered to therapy but hesitant to get second round of therapy. will continue to endorse new developments to maintenance technician 2nd shift nurse.
[2017-05-20 20:27] VITALS: BP 127/62
--- NOTE | 2017-05-20 20:53 | NUR ---
Patient requesting pain medication. Spoke to Dr. Brown regarding patient medication. Dr. Brown made aware that patient is allergic to Acetaminophen and that patient verbalizes she swells up when taken. New orders for Dilaudid 2mg PO q6h PRN for pain. New orders noted and carried out. Patient made aware of new pain medication.
[2017-05-20] MEDS: DOXAZOSIN 2 MG TABLET PO SCH (20:59)
[2017-05-20] MEDS: ATORVASTATIN 10 MG TABLET PO SCH (20:59)
[2017-05-20] MEDS ORDERED: HYDROMORPHONE HCL 2 MG TABLET PO PRN (21:00)
--- NOTE | 2017-05-20 21:19 | NUR ---
PRN dilaudid was given at this time, for lower back pain, 9/10, on pain scale.
--- NOTE | 2017-05-20 22:30 | NUR ---
received to care, sitting in the chair, pleasant upon approach. assisted to the bathroom, and bed, by staff, via FWW. remains on oxygen via nasal cannula, at 2/lpm. PRN dilaudid was given at 2118, and, by 2218, she reported good relief, stating it is now 6/10, on the pain scale. as of 2199, she appears to be falling asleep. no distress noted. call light in reach. will continue to monitor closely.
[2017-05-20] MEDS: Z GUARD REMEDY PASTE 57 GM TUBE TOP PRN (22:35)
--- NOTE | 2017-05-20 23:45 | NUR ---
PRN ambien given for insomnia
--- NOTE | 2017-05-21 00:45 | NUR ---
appears to be asleep. no distress noted.
[2017-05-21] MEDS: hydrALAZINE HCL 50 MG TABLET PO SCH ×3 (06:00→22:00)
--- NOTE | 2017-05-21 06:00 | NUR ---
SLEPT WELL, LAST NIGHT. WAS ASSISTED TO THE BATHROOM ONCE, BUT MOSTLY SLEPT THE REST OF THE TIME. IS NOW AWAKE. DENIES PAIN OR DISCOMFORT. AM HYDRALAZINE DOSE WAS HELD, DUE TO B/P OF 107/50. CONTINUES TO DENY ANY URINARY SX, OR OTHER COMPLAINTS. CALL LIGHT IN REACH. NO DISTRESS NOTED. WILL CONTINUE TO MONITOR CLOSELY.
[2017-05-21] MEDS: BLOOD SUGAR DIAGNOSTIC 1 EACH STRIP VI SCH ×4 (06:46→21:00)
[2017-05-21] MEDS: PANTOPRAZOLE SODIUM 40 MG TABLET.DR PO SCH (06:47)
--- NOTE | 2017-05-21 08:00 | NUR ---
Received patient awake, alert and oriented x4. No S/S of distress. No complaints of pain at the moment. on O2 at 2LPM, no complaints of SOB or chest pains noted. Sp02 at 95%.
[2017-05-21 08:02] LABS: BASOPHILS # (AUTO) 0.1 K/uL (0.0-8.0); BASOPHILS % (AUTO) 0.7 % (0.0-2.0); EOSINOPHILS # (AUTO) 1.8 K/uL (0.0-0.7); EOSINOPHILS % (AUTO) 24.7 % (0.0-7.0); LYMPHOCYTES # (AUTO) 0.8 K/UL (0.8-4.8); LYMPHOCYTES % (AUTO) 11.1 % (20.5-51.5); MEAN CORPUSCULAR HEMOGLOBIN 27.6 UUG (27.0-31.0); MEAN CORPUSCULAR HGB CONC 33 g/dL (32.0-37.0); MEAN CORPUSCULAR VOLUME 82.8 FL (81.0-99.0); MONOCYTES # (AUTO) 0.5 K/UL (0.1-1.30); MONOCYTES % (AUTO) 7.5 % (0.0-11.0); PLATELET COUNT (AUTO) 250 K/UL (150-450); RED BLOOD CELL COUNT(AUTO) 2.81 MIL/UL (4.2-5.4); WHITE BLOOD COUNT (AUTO) 7.2 K/UL (4.0-11.2)
[2017-05-21 08:15] LABS: HEMATOCRIT 23.3 % (37-47); HEMOGLOBIN 7.8 G/DL (12.0-16.0)
--- NOTE | 2017-05-21 08:15 | NUR ---
Critical lab value reported by Madeline from Laboratory Hct 23.3. Hgb 7.8. Called and paged Dr. Ricardo Garcia.
[2017-05-21 08:26] VITALS: BP 123/62
[2017-05-21 08:38] LABS: CARBON DIOXIDE 25 mmol/L (21-32); CHLORIDE 108 mmol/L (98-107); CREATININE 2.2 mg/dL (0.6-1.3); GLUCOSE 105 mg/dL (74-106); MAGNESIUM 2.3 mg/dL (1.8-2.4); PHOSPHOROUS 3.9 mg/dL (2.5-4.9); POTASSIUM 4.1 mmol/L (3.5-5.1); UREA NITROGEN, BLOOD 48 mg/dL (7-18)
--- NOTE | 2017-05-21 08:40 | NUR ---
No call back from Dr. Garcia, Informed Dr Ramírez of critical lab value.
--- NOTE | 2017-05-21 08:47 | NUR ---
Dr. Ricardo Garcia, call back and ordered CBC after 4 hours and hold Lovenox 40 mg for now.
[2017-05-21] MEDS: CARISOPRODOL 350 MG TABLET PO SCH ×4 (09:00→17:00)
[2017-05-21] MEDS: ENOXAPARIN SODIUM 30 MG/0.3 ML DISP.SYRIN SQ SCH (09:00)
--- NOTE | 2017-05-21 09:00 | NUR ---
Patient refused to take SOMA. Discussed risks and benefits of not taking medications, patient still refuses
[2017-05-21] MEDS: Z GUARD REMEDY PASTE 57 GM TUBE TOP PRN (09:05)
[2017-05-21] MEDS: CARVEDILOL 25 MG TABLET PO SCH ×2 (09:09→21:00)
[2017-05-21] MEDS: ASPIRIN 81 MG TAB.CHEW PO SCH (09:10)
[2017-05-21] MEDS: NIFEdipine XL 30 MG TABSR PO SCH (09:10)
[2017-05-21] MEDS: ISOSORBIDE DINITRATE 20 MG TABLET PO SCH ×2 (09:11→21:00)
[2017-05-21 10:00] LABS: BAND % (MANUAL) 2 % (0-10); EOSINOPHILS % (MANUAL) 21 % (0-8); LYMPHOCYTES % (MANUAL) 10 % (20-40); MONOCYTES % (MANUAL) 4 % (2-10); NEUTROPHILS % (MANUAL) 63 % (42-75)
--- NOTE | 2017-05-21 10:07 | NUR ---
Patient said she feels anxious and wants to sleep but cannot sleep. PRN Ativan given
[2017-05-21] MEDS: LORAZEPAM 0.5 MG TABLET PO PRN (10:43)
[2017-05-21 12:55] LABS: BASOPHILS % (AUTO) 0.4 % (0.0-2.0); EOSINOPHILS # (AUTO) 1.6 K/uL (0.0-0.7); LYMPHOCYTES # (AUTO) 0.7 K/UL (0.8-4.8); LYMPHOCYTES % (AUTO) 10.6 % (20.5-51.5); MEAN CORPUSCULAR HEMOGLOBIN 25.9 UUG (27.0-31.0); MEAN CORPUSCULAR HGB CONC 31 g/dL (32.0-37.0); MEAN CORPUSCULAR VOLUME 83.5 FL (81.0-99.0); MONOCYTES # (AUTO) 0.5 K/UL (0.1-1.30); MONOCYTES % (AUTO) 6.9 % (0.0-11.0); NEUTROPHILS # (AUTO) 4.2 K/UL (1.8-8.9); NEUTROPHILS % (AUTO) 59.1 % (38.5-71.5); PLATELET COUNT (AUTO) 265 K/UL (150-450)
[2017-05-21 13:14] LABS: HEMOGLOBIN 7.8 G/DL (12.0-16.0)
--- NOTE | 2017-05-21 13:16 | NUR ---
CBC repeated, RBC-3.00, Hgb- 7.8, Hct 25. Informed Floresita Jomar/ HOSPICE COMMUNITY LIAISON. No new orders at this time.
[2017-05-21 13:37] LABS: BAND % (MANUAL) 2 % (0-10); EOSINOPHILS % (MANUAL) 22 % (0-8); LYMPHOCYTES % (MANUAL) 11 % (20-40); MONOCYTES % (MANUAL) 7 % (2-10); NEUTROPHILS % (MANUAL) 58 % (42-75)
--- NOTE | 2017-05-21 13:37 | NUR ---
PATIENT REFUSED SOMA MEDICATIONS, DISCUSSED RISKS AND BENEFITS. BUT PATIENT STILL REFUSES
[2017-05-21] MEDS: INSULIN REGULAR, HUMAN 300 UNIT/3 ML VIAL SQ PRN ×2 (16:29→22:13)
--- NOTE | 2017-05-21 17:04 | NUR ---
PATIENT REFUSED TO TAKE SOMA, DISCUSSED RISKS AND BENEFITS BUT PATIENT REFUSED AND SAID MEDICATION MAKE HER TOO SLEEPY
[2017-05-21] MEDS ORDERED: GOLYTELY 4000 ML BOTTLE PO ONE (19:00)
[2017-05-21] MEDS: DOXAZOSIN 2 MG TABLET PO SCH (21:00)
[2017-05-21] MEDS: LORAZEPAM 1 MG TABLET PO PRN (22:11)
[2017-05-21] MEDS: ATORVASTATIN 10 MG TABLET PO SCH (22:12)
[2017-05-21 22:37] VITALS: BP 138/64
[2017-05-22] MEDS: ZOLPIDEM 5 MG TABLET PO PRN ×2 (00:34→23:55)
[2017-05-22] MEDS: hydrALAZINE HCL 50 MG TABLET PO SCH ×3 (06:31→22:00)
[2017-05-22] MEDS: PANTOPRAZOLE SODIUM 40 MG TABLET.DR PO SCH (06:33)
[2017-05-22] MEDS: BLOOD SUGAR DIAGNOSTIC 1 EACH STRIP VI SCH ×4 (06:33→20:33)
--- NOTE | 2017-05-22 06:47 | NUR ---
pt aaox4, ambulatory, vss, no signs and symptoms of LILIA or active bleeding. capillary glucose 131. pt refused ssi-regular. capillary glucose level this morning 101. pt denies pain at this time, call light with in reach and bed in low position. pt refusing EGD planned for today. education provided to patient. patient verbalized understanding and still refuses EGD. notified Nurse Practicionedominic Hadley via [employer] call center and notified Dr Bustamante via emergency call back messaging system at 2000 on 05/21/2017
[2017-05-22 07:46] LABS: BASOPHILS % (AUTO) 0.5 % (0.0-2.0); EOSINOPHILS # (AUTO) 1.5 K/uL (0.0-0.7); EOSINOPHILS % (AUTO) 21.3 % (0.0-7.0); LYMPHOCYTES % (AUTO) 13.1 % (20.5-51.5); MEAN CORPUSCULAR HEMOGLOBIN 27.7 UUG (27.0-31.0); MEAN CORPUSCULAR HGB CONC 33 g/dL (32.0-37.0); MEAN CORPUSCULAR VOLUME 83.1 FL (81.0-99.0); MONOCYTES # (AUTO) 0.6 K/UL (0.1-1.30); MONOCYTES % (AUTO) 7.8 % (0.0-11.0); NEUTROPHILS # (AUTO) 4.2 K/UL (1.8-8.9); NEUTROPHILS % (AUTO) 57.3 % (38.5-71.5); PLATELET COUNT (AUTO) 252 K/UL (150-450); RED BLOOD CELL COUNT(AUTO) 2.73 MIL/UL (4.2-5.4); WHITE BLOOD COUNT (AUTO) 7.3 K/UL (4.0-11.2)
[2017-05-22 07:49] LABS: ALANINE AMINOTRANSFERASE 15 U/L (14-59); ALKALINE PHOSPHATASE 27 U/L (50-136); ASPARTATE AMINOTRANSFERASE 15 U/L (15-37); BILIRUBIN,TOTAL 0.3 mg/dL (0.2-1.0); CARBON DIOXIDE 26 mmol/L (21-32); CHLORIDE 110 mmol/L (98-107); CREATININE 1.8 mg/dL (0.6-1.3); GLUCOSE 105 mg/dL (74-106); MAGNESIUM 2.4 mg/dL (1.8-2.4); PHOSPHOROUS 3.6 mg/dL (2.5-4.9); POTASSIUM 4.3 mmol/L (3.5-5.1); TOTAL PROTEIN, SERUM 6.5 g/dL (6.4-8.2); UREA NITROGEN, BLOOD 51 mg/dL (7-18)
[2017-05-22 07:58] LABS: HEMOGLOBIN 7.6 G/DL (12.0-16.0)
[2017-05-22 07:59] LABS: HEMATOCRIT 22.6 % (37-47)
[2017-05-22 08:43] VITALS: BP 134/71
[2017-05-22] MEDS: ASPIRIN 81 MG TAB.CHEW PO SCH (09:44)
[2017-05-22] MEDS: ISOSORBIDE DINITRATE 20 MG TABLET PO SCH ×2 (09:45→20:33)
[2017-05-22] MEDS: CARISOPRODOL 350 MG TABLET PO SCH ×3 (09:45→17:00)
[2017-05-22] MEDS: NIFEdipine XL 30 MG TABSR PO SCH (09:46)
[2017-05-22] MEDS: CARVEDILOL 25 MG TABLET PO SCH ×2 (09:47→20:32)
[2017-05-22] MEDS: ENOXAPARIN SODIUM 30 MG/0.3 ML DISP.SYRIN SQ SCH (09:49)
--- NOTE | 2017-05-22 10:00 | NUR ---
Patient refused to take her Soma. Explained risks and benefits but patient still refused.
[2017-05-22 11:35] LABS: BAND % (MANUAL) 2 % (0-10); EOSINOPHILS % (MANUAL) 24 % (0-8); LYMPHOCYTES % (MANUAL) 11 % (20-40); MONOCYTES % (MANUAL) 6 % (2-10); NEUTROPHILS % (MANUAL) 57 % (42-75)
--- NOTE | 2017-05-22 13:55 | NUR ---
Notified Floresita Hadley BASE FILLER if ok to put back to previous diet order since patient refused for EGD/colonoscopy and per BASE FILLER ok to put back to carb consistent and cardiac diet. Also informed BASE FILLER regarding patient's concern of having to be seen by blood specialist but per BASE FILLER needs to rule out bleeding from GI first before referring to blood specialist.
--- NOTE | 2017-05-22 17:30 | NUR ---
Dr. Bustamante (GI) who is in the facility made aware regarding patient's refusal for EGD and per MD its ok and just inform him once patient agrees.
--- NOTE | 2017-05-22 17:52 | NUR ---
RN NOTES: PATIENT WANTS TO LEAVE AMA. PATIENT STATES" I WANNA BE DISCHARGE AND MY DAUGHTER IS GONNA COME AND PICK ME UP IN THE NEXT HOUR". CALLED FRONT END APPLICATION DEVELOPER.SILVA HOLLAND AND MADE HER AWARE. CHARGE NURSE IS AWARE. WILL CONTINUE TO FOLLOW UP.
--- NOTE | 2017-05-22 19:30 | NUR ---
RN NOTES: SEDRICK ISSA SPOKE WITH THE PATIENT REGARDING PATIENT'S CONDITION. PATIENT DECIDES TO STAY IN THE FACILITY AND NOT LEAVE AMA. WILL CONTINUE TO MONITOR PATIENT. Addendum: 05/22/17 at 1934 by NELLIE SIMMONS RN RN NOTES: SEDRICK ISSA SPOKE WITH THE PATIENT REGARDING PATIENT'S MEDICAL CONDITION. PATIENT DECIDES TO STAY IN THE FACILITY AND NOT TO LEAVE AMA. WILL CONTINUE TO MONITOR PATIENT FOR ANY CHANGES.
[2017-05-22 20:11] VITALS: BP 141/68
[2017-05-22] MEDS: DOXAZOSIN 2 MG TABLET PO SCH (20:30)
[2017-05-22] MEDS: ATORVASTATIN 10 MG TABLET PO SCH (20:32)
[2017-05-22] MEDS: INSULIN REGULAR, HUMAN 300 UNIT/3 ML VIAL SQ PRN (20:34)
[2017-05-22 22:01] VITALS: BP 141/68
[2017-05-22] MEDS: LORAZEPAM 1 MG TABLET PO PRN (22:34)
[2017-05-23] MEDS: PANTOPRAZOLE SODIUM 40 MG TABLET.DR PO SCH (06:21)
[2017-05-23] MEDS: hydrALAZINE HCL 50 MG TABLET PO SCH ×3 (06:21→21:46)
[2017-05-23] MEDS: BLOOD SUGAR DIAGNOSTIC 1 EACH STRIP VI SCH ×4 (06:26→20:05)
--- NOTE | 2017-05-23 07:30 | NUR ---
Lab results for Hgb 7.5 Hct 23.5 MD notified for critical Lab values Dr.Andonyan WOLFE recommended to have recheck of CBC next day. Will continue to asses patient for complications
[2017-05-23 07:55] LABS: CARBON DIOXIDE 25 mmol/L (21-32); CHLORIDE 109 mmol/L (98-107); CREATININE 1.7 mg/dL (0.6-1.3); GLUCOSE 104 mg/dL (74-106); MAGNESIUM 2.3 mg/dL (1.8-2.4); PHOSPHOROUS 3.6 mg/dL (2.5-4.9); POTASSIUM 4.2 mmol/L (3.5-5.1); UREA NITROGEN, BLOOD 48 mg/dL (7-18)
[2017-05-23 07:58] LABS: BASOPHILS % (AUTO) 0.6 % (0.0-2.0); EOSINOPHILS # (AUTO) 1.4 K/uL (0.0-0.7); EOSINOPHILS % (AUTO) 19.2 % (0.0-7.0); HEMOGLOBIN 7.5 G/DL (12.0-16.0); LYMPHOCYTES # (AUTO) 0.9 K/UL (0.8-4.8); LYMPHOCYTES % (AUTO) 11.3 % (20.5-51.5); MEAN CORPUSCULAR HEMOGLOBIN 26.7 UUG (27.0-31.0); MEAN CORPUSCULAR HGB CONC 32 g/dL (32.0-37.0); MEAN CORPUSCULAR VOLUME 83.3 FL (81.0-99.0); MONOCYTES # (AUTO) 0.5 K/UL (0.1-1.30); NEUTROPHILS # (AUTO) 4.7 K/UL (1.8-8.9); NEUTROPHILS % (AUTO) 61.9 % (38.5-71.5); PLATELET COUNT (AUTO) 275 K/UL (150-450); RED BLOOD CELL COUNT(AUTO) 2.82 MIL/UL (4.2-5.4); WHITE BLOOD COUNT (AUTO) 7.5 K/UL (4.0-11.2)
[2017-05-23 07:59] LABS: HEMATOCRIT 23.5 % (37-47)
[2017-05-23] MEDS: ASPIRIN 81 MG TAB.CHEW PO SCH (08:56)
[2017-05-23] MEDS: NIFEdipine XL 30 MG TABSR PO SCH (08:59)
[2017-05-23] MEDS: CARVEDILOL 25 MG TABLET PO SCH ×2 (08:59→20:09)
[2017-05-23] MEDS: CARISOPRODOL 350 MG TABLET PO SCH ×3 (09:00→16:25)
[2017-05-23] MEDS: ISOSORBIDE DINITRATE 20 MG TABLET PO SCH ×2 (09:00→20:08)
[2017-05-23 09:01] VITALS: BP 130/51
[2017-05-23] MEDS: ENOXAPARIN SODIUM 30 MG/0.3 ML DISP.SYRIN SQ SCH (09:01)
[2017-05-23] MEDS: LORAZEPAM 1 MG TABLET PO PRN (09:02)
[2017-05-23 10:08] LABS: BAND % (MANUAL) 2 % (0-10); BASOPHILS % (MANUAL) 2 % (0-2); EOSINOPHILS % (MANUAL) 15 % (0-8); LYMPHOCYTES % (MANUAL) 18 % (20-40); MONOCYTES % (MANUAL) 5 % (2-10); NEUTROPHILS % (MANUAL) 58 % (42-75)
[2017-05-23] MEDS: INSULIN REGULAR, HUMAN 300 UNIT/3 ML VIAL SQ PRN (16:34)
--- NOTE | 2017-05-23 18:58 | NUR ---
pt continued to refuse egd and colonoscopy. explained risks and benefits. pt also had ciritical lab value for blood work. md aragon ordered to continue cbc tomorow. pt refused soma. took meds as prescribed and refused one therapy session. will endorse new orders to shift boss nurse.
--- NOTE | 2017-05-23 19:30 | NUR ---
PT RECEIVED SITTING IN CHAIR, AWAKE. A/OX4. ABLE TO MAKE NEEDS KNOWN. PT BLOOD PRESSURE ELEVATED. WILL ADMINISTER BP MEDS ORDERED. NO ACUTE DISTRESS NOTED. PT ON 2L NC. NO COMPLAINTS OF PAIN AT THIS TIME. LEFT UPPER MIDLINE C/D/I. SAFETY MEASURES IMPLEMENTED. CALL LIGHT WITHIN REACH. WILL CONTINUE TO MONITOR.
[2017-05-23 20:00] VITALS: BP 150/65
[2017-05-23] MEDS: ATORVASTATIN 10 MG TABLET PO SCH (20:05)
[2017-05-23] MEDS: DOXAZOSIN 2 MG TABLET PO SCH (20:09)
[2017-05-23] MEDS: LORAZEPAM 0.5 MG TABLET PO PRN (21:46)
--- NOTE | 2017-05-23 22:00 | NUR ---
REPORT RECEIVED FROM NEGRITO GUTIERREZ. I AM NOW RESPONSIBLE FOR THIS PATIENT'S CARE, THROUGH THE NIGHT. AT PRESENT, WITHOUT C/O PAIN OR SOB. ENC TO WEAR OXYGEN AAT NOW THAT H/H IS REMAINING IN THE 7'S FOR HGB. OXYGEN LONG LINE TUBING APPLIED SO SHE MAY WEAR O2 TO TOILET PRN. ASSISTED TO TOILET WITHOUT C/O SOB ON OXYGEN. VOIDED IN ADEQUATE AMOUNTS. BILATERAL LOWER EXTREMITIES WITH 2-3 PLUS EDEMA. ENC TO KEEP LEGS ELEVATED ON PILLOWS WHILE IN BED. AND TO NOT KEEP LEGS DANGLING FOR TOO LONG BEFORE GETTING BACK IN BED TO ELEVATE LEGS. PATIENT VERBALIZES GOOD UNDERSTANDING. CALL LIGHT WITHIN REACH AAT. ALL QUESTIONS ANSWERED.
[2017-05-24] VITALS (12 sets, daily range): BP systolic 102–149; BP diastolic 55–72
[2017-05-24] MEDS: ZOLPIDEM 5 MG TABLET PO PRN (00:12)
[2017-05-24] MEDS: hydrALAZINE HCL 50 MG TABLET PO SCH ×3 (06:10→21:52)
--- NOTE | 2017-05-24 06:15 | NUR ---
slept fairly well after ambien po given last night. no c/o pain or sob this morning. o2 sat is 96% on oxygen at 2 lpm/nasal cannula. had one bm that is soft, greenish brown and without overt signs of blood noted. slight less edema of left leg this morning. vitals stable this am.call light within reach
[2017-05-24] MEDS: PANTOPRAZOLE SODIUM 40 MG TABLET.DR PO SCH (07:05)
[2017-05-24] MEDS: BLOOD SUGAR DIAGNOSTIC 1 EACH STRIP VI SCH ×4 (07:05→20:41)
[2017-05-24 07:10] LABS: EOSINOPHILS # (AUTO) 1.1 K/uL (0.0-0.7); LYMPHOCYTES % (AUTO) 13.2 % (20.5-51.5); MONOCYTES # (AUTO) 0.5 K/UL (0.1-1.30)
[2017-05-24 07:13] LABS: BASOPHILS % (AUTO) 0.5 % (0.0-2.0); EOSINOPHILS % (AUTO) 17.6 % (0.0-7.0); LYMPHOCYTES # (AUTO) 0.8 K/UL (0.8-4.8); MEAN CORPUSCULAR HGB CONC 33 g/dL (32.0-37.0); MEAN CORPUSCULAR VOLUME 82.9 FL (81.0-99.0); MONOCYTES % (AUTO) 7.5 % (0.0-11.0); NEUTROPHILS % (AUTO) 61.2 % (38.5-71.5); PLATELET COUNT (AUTO) 256 K/UL (150-450); WHITE BLOOD COUNT (AUTO) 6.4 K/UL (4.0-11.2)
[2017-05-24 07:19] LABS: CARBON DIOXIDE 26 mmol/L (21-32); CHLORIDE 107 mmol/L (98-107); CREATININE 1.7 mg/dL (0.6-1.3); GLUCOSE 110 mg/dL (74-106); HEMOGLOBIN 6.8 G/DL (12.0-16.0); MAGNESIUM 2.3 mg/dL (1.8-2.4); PHOSPHOROUS 4.3 mg/dL (2.5-4.9); POTASSIUM 4.4 mmol/L (3.5-5.1); UREA NITROGEN, BLOOD 54 mg/dL (7-18)
[2017-05-24 07:20] LABS: HEMATOCRIT 20.7 % (37-47)
[2017-05-24 08:08] LABS: BASOPHILS % (MANUAL) 1 % (0-2); LYMPHOCYTES % (MANUAL) 9 % (20-40); MONOCYTES % (MANUAL) 7 % (2-10); MYELOCYTES % 1 % (0-0)
[2017-05-24 08:09] LABS: EOSINOPHILS % (MANUAL) 14 % (0-8); NEUTROPHILS % (MANUAL) 68 % (42-75)
[2017-05-24] MEDS: CARISOPRODOL 350 MG TABLET PO SCH ×2 (08:45→12:47)
[2017-05-24] MEDS: ENOXAPARIN SODIUM 30 MG/0.3 ML DISP.SYRIN SQ SCH (09:00)
[2017-05-24] MEDS: CARVEDILOL 25 MG TABLET PO SCH ×2 (09:00→20:41)
[2017-05-24] MEDS: NIFEdipine XL 30 MG TABSR PO SCH (09:00)
[2017-05-24] MEDS: ISOSORBIDE DINITRATE 20 MG TABLET PO SCH ×2 (09:02→20:42)
[2017-05-24] MEDS: ASPIRIN 81 MG TAB.CHEW PO SCH (09:05)
[2017-05-24] MEDS: PANTOPRAZOLE SODIUM 40 MG VIAL IV SCH ×2 (10:05→21:20)
--- NOTE | 2017-05-24 10:12 | NUR ---
pt vitals hr 78 pr 130/80. 02 sat 100. rr 19. Pt complains of no pain .pt given protonix as per md order. pt appeared lethargic. no loc changes. pt has increasing edema on feet 3+. md notified and recommended lasix after a probable blood transfusion due to low hematology values. awaiting new orders.
--- NOTE | 2017-05-24 13:30 | NUR ---
Orders received to transfuse 1 unit of blood for hemoglobin of 6.8. Type and screen order inputted by Floresita Hadley NP. Blood bank called to verify order received, blood bank confirmed that order was received and would work on it.
--- NOTE | 2017-05-24 14:19 | NUR ---
marco antonio gar ordered a blood transfusion 1 unit for today. pt also given protonix iv as prescribed by md. no acute distress. will continue to reassess for complications.
--- NOTE | 2017-05-24 15:30 | NUR ---
Blood transfusion not started yet, blood unit not received from blood bank, type and screen order not processed. Call made out to blood bank, confirmed orders were received, reported that they would complete order after taking care of lab orders in ER. Continuing to assess patient. No signs of acute distress noted, no verbalized needs at this time.
--- NOTE | 2017-05-24 16:30 | NUR ---
Blood transfusion not started yet, blood unit not received yet from blood bank. Allan Conklin RN made call out to blood bank for blood unit. He was told orders were still being processed and would be completed soon. Continuing to monitor patient, no signs of acute distress noted, no verbalized needs at this time.
--- NOTE | 2017-05-24 19:27 | NUR ---
pt had no signs of acute distress during shift. meds taken as prescribed. however pt refused soma. pt had a blood transfusion during shift. pt on clear liquid diet and had consent signed on chart. will continue to endorse new orders to lieutenant shift supervisor nurse.
--- NOTE | 2017-05-24 19:30 | NUR ---
RECEIVED REPORT FROM RN AND UPON MAKING ROUNDS, PATIENT IS AWAKE IN BED WITH FAMILY AT BEDSIDE. PATIENT IS A/O X4. PATIENT IS RECEIVING 1 UNIT OF BLOOD, TRANSFUSING TO LEFT UPPER ARM, MID-LINE. NO RESP. DISTRESS NOTED. PATIENT IS ON O2 2L NC SATING 96-97%. VS WNL. DENIES ANY SOB. DENIES PAIN OR DISCOMFORT. CALL LIGHT IN REACH. ALL NEEDS ATTENDED. WILL CONTINUE TO MONITOR.
--- NOTE | 2017-05-24 19:40 | NUR ---
PATIENT COMPLAINING OF PAIN IN MID-LINE, STATING THAT "THE BLOOD TRANSFUSION IS HURTING." BLOOD TRANSFUSION STOPPED. UNABLE TO FLUSH MID-LINE. RN AT BEDSIDE AND IS ALSO UNABLE TO FLUSH. ENVIRONMENTAL HEALTH AND SAFETY INTERN NOTIFIED AND WILL CONTACT MD. ALL NEEDS ATTENDED. WILL CONTINUE TO MONITOR.
--- NOTE | 2017-05-24 19:45 | NUR ---
CALLED DR. MALOENY, COMMUNITY HEALTH PLANNING DIRECTOR FOR [facility] TO INFORM HIM OF THE SITUATION REGARDING THE BLOOD TRANSFUSION. INFORMED PER DR. MALONEY TO CALL OUT TO AMALIA ALEXANDRE WHO WAS THE ORDERING HHAS FOR THE BLOOD TRANSFUSION. MANUFACTURING TEACHER NOTIFIED.
--- NOTE | 2017-05-24 19:55 | NUR ---
SPOKE WITH AMALIA ALEXANDRE AND INFORMED HER THAT MID-LINE IS NON FUNCTIONING AND BLOOD HAS BEEN STOPPED. RECEIVED VERBAL ORDER TO TRY AND RE-START IV AND IF UNABLE TO CALL OUT FOR STAT- MID-LINE AND THEN RE-ORDER ANOTHER UNIT OF BLOOD TO BE TRANSFUSED. WILL CONTINUE TO MONITOR.
--- NOTE | 2017-05-24 20:30 | NUR ---
PUBLIC HEALTH AIDES TEACHER AT BEDSIDE TRYING TO INSERT IV FOR BLOOD TRANSFUSION. PATIENT IS A HARD STICK. RN NURSING BAG END SEWER NOTIFIED AND CALLED OUT TO [facility] LINE NURSE FOR INSERTION. UNABLE TO REACH HIM AND BAG END SEWER NOTIFIED.
[2017-05-24] MEDS: ATORVASTATIN 10 MG TABLET PO SCH (20:41)
[2017-05-24] MEDS: LORAZEPAM 0.5 MG TABLET PO PRN (20:42)
[2017-05-24] MEDS: INSULIN REGULAR, HUMAN 300 UNIT/3 ML VIAL SQ PRN (20:44)
[2017-05-24] MEDS: DOXAZOSIN 2 MG TABLET PO SCH (21:10)
--- NOTE | 2017-05-24 21:15 | NUR ---
APPLICATION SYSTEMS ARCHITECT ABLE TO INSERT #[id number] TO RIGHT HAND. CALLED LAB AND RE-ORDERED 1 UNIT OF PRBC ORDERED. WILL CONTINUE TO MONITOR.
--- NOTE | 2017-05-24 21:50 | NUR ---
MID-LINE NOTED TO LEFT UPPER ARM, REMOVED BY OVERHAULER. WILL CONTINUE TO MONITOR FOR BLEEDING. ALL NEEDS ATTENDED.
--- NOTE | 2017-05-24 22:15 | NUR ---
1 UNIT OF BLOOD STARTED ORDERED. VSS. CALL LIGHT IN REACH. ALL NEEDS ATTENDED.
--- NOTE | 2017-05-24 22:30 | NUR ---
BLOOD TRANSFUSING WELL. NO TRANSFUSION REACTION NOTED. VS WNL. PATIENT DENIES ANY SOB. CALL LIGHT IN REACH. ALL NEEDS ATTENDED. WILL CONTINUE TO MONITOR.
[2017-05-25 01:00] VITALS: BP 113/65
--- NOTE | 2017-05-25 01:00 | NUR ---
BLOOD TRANSFUSION COMPLETE. PATIENT AWAKE AND A/O X4. TRANSFUSED WELL. NO REACTION NOTED. VSS. PATIENT DENIES ANY SOB. NO RESP. DISTRESS NOTED. CALL LIGHT IN REACH. ALL NEEDS ATTENDED. WILL CONTINUE TO MONITOR.
[2017-05-25] MEDS: ZOLPIDEM 5 MG TABLET PO PRN ×2 (01:15→23:25)
[2017-05-25] MEDS: BLOOD SUGAR DIAGNOSTIC 1 EACH STRIP VI SCH ×4 (06:34→20:47)
[2017-05-25] MEDS: hydrALAZINE HCL 50 MG TABLET PO SCH ×3 (06:35→22:00)
--- NOTE | 2017-05-25 06:45 | NUR ---
PATIENT ASLEEP IN BED. EASILY AROUSABLE. DENIES PAIN OR DISCOMFORT. NO RESP. DISTRESS NOTED. SLEPT WELL AFTER TRANSFUSION. REMAINS ON CLEAR LIQUID DIET ORDERED. ALL NEEDS ATTENDED. WILL CONTINUE TO MONITOR AND ASSESS. CALL LIGHT IN REACH. BED ALARM ON.
[2017-05-25 07:04] LABS: BASOPHILS % (AUTO) 0.4 % (0.0-2.0); EOSINOPHILS % (AUTO) 14.4 % (0.0-7.0); HEMOGLOBIN 7.9 G/DL (12.0-16.0); LYMPHOCYTES # (AUTO) 0.9 K/UL (0.8-4.8); MEAN CORPUSCULAR HEMOGLOBIN 27.4 UUG (27.0-31.0); MEAN CORPUSCULAR HGB CONC 33 g/dL (32.0-37.0); MEAN CORPUSCULAR VOLUME 83.7 FL (81.0-99.0); MONOCYTES # (AUTO) 0.6 K/UL (0.1-1.30); MONOCYTES % (AUTO) 8.4 % (0.0-11.0); NEUTROPHILS # (AUTO) 4.2 K/UL (1.8-8.9); NEUTROPHILS % (AUTO) 62.8 % (38.5-71.5); PLATELET COUNT (AUTO) 257 K/UL (150-450); RED BLOOD CELL COUNT(AUTO) 2.87 MIL/UL (4.2-5.4); WHITE BLOOD COUNT (AUTO) 6.7 K/UL (4.0-11.2)
[2017-05-25 07:12] LABS: CARBON DIOXIDE 24 mmol/L (21-32)
[2017-05-25 07:30] VITALS: BP 150/72
[2017-05-25 07:30] LABS: CHLORIDE 110 mmol/L (98-107); CREATININE 1.8 mg/dL (0.6-1.3); GLUCOSE 94 mg/dL (74-106); MAGNESIUM 2.3 mg/dL (1.8-2.4); PHOSPHOROUS 4.6 mg/dL (2.5-4.9); POTASSIUM 4.4 mmol/L (3.5-5.1); UREA NITROGEN, BLOOD 51 mg/dL (7-18)
--- NOTE | 2017-05-25 08:00 | NUR ---
RECEIVED PATIENT ASLEEP. UN-LABORED BREATHING.WITH O2 AT 2LMP/ VIA NASAL CANNULA. SALINE LOCK OVER RIGHT HAND G22. CALL LIGHT WITHIN REACH
[2017-05-25] MEDS: PANTOPRAZOLE SODIUM 40 MG VIAL IV SCH ×2 (09:03→20:23)
[2017-05-25] MEDS: CARVEDILOL 25 MG TABLET PO SCH ×2 (09:03→20:49)
[2017-05-25] MEDS: NIFEdipine XL 30 MG TABSR PO SCH (09:04)
[2017-05-25] MEDS: ISOSORBIDE DINITRATE 20 MG TABLET PO SCH ×2 (09:04→20:50)
--- NOTE | 2017-05-25 09:30 | NUR ---
PATIENT REFUSED TO TAKE HER BREAKFAST, BUT ASKED FOR SODA. DISCUSSED CLEAR LIQUID DIET FOR TODAY IN PREPARATION FOR EGD TOMORROW. G22 SALINE LOCK PATENT. NO COMPLAINTS OF SOB OR PAIN AT THE MOMENT.
--- NOTE | 2017-05-25 10:00 | NUR ---
IV G 20 STARTED OVER RIGHT FOREARM BY DEB/RN MANDARIN SPEAKING NANNY. PATENT, FLUSHING WELL.
[2017-05-25] MEDS ORDERED: GOLYTELY 4000 ML BOTTLE PO ONE (12:30)
[2017-05-25] MEDS ORDERED: CARISOPRODOL 350 MG TABLET PO PRN (13:00)
--- NOTE | 2017-05-25 14:00 | NUR ---
STARTED WITH BOWEL PREPARATION, ENCOURAGED PATIENT TO DRINK MUCH SHE CAN. WITH WOUND OVER RIGHT BUTTOCKS, POSSIBLE PARTIAL THICKNESS. WOUND CONSULT ORDERED. Z GUARD APPLIED OVER AREA.
[2017-05-25] MEDS: INSULIN REGULAR, HUMAN 300 UNIT/3 ML VIAL SQ PRN ×2 (17:00→20:55)
--- NOTE | 2017-05-25 18:23 | NUR ---
Consent for EGD and Colonoscopy signed by patient, consent for blood transfusion signed by patient. Procedure tomorrow at 8:30. Dr. Bustamante and Floresita Hadley/ ESTUARDO aware. No new orders at this time. Maintained patient on clear liquids. Encouraged to take as much Golytely as she can.
[2017-05-25 20:00] VITALS: BP 116/58
--- NOTE | 2017-05-25 20:00 | NUR ---
RECEIVED PATIENT AWAKE IN BED. A/O X4. REPORTED DURING SHIFT CHANGE/REPORT THAT PATIENT STARTED TO DRINK GOLYTELY AT 1400 BUT UPON ROUNDING PATIENT HAS BARELY BEEN ABLE TO DRINK 1/4 OF THE CONTAINER. REPORTED THAT PATIENT HAD 3 BOWEL MOVEMENTS BUT STOOLS ARE DARK BLACK. PATIENT IS VERBALIZING THAT SHE IS UNABLE TO FINISH ALL THE DRINK AND JUST WANTS TO CANCEL THE PROCEDURE THAT IS SCHEDULED FOR 0800 AM TOMORROW MORNING. PATIENT EDUCATED ON THE IMPORTANCE OF THE COLONOSCOPY, BUT STILL REFUSING. WATER AND SEWER SYSTEMS SUPERINTENDENT AND NURSING MAKING DEPARTMENT PREPARER NOTIFIED AND WILL CALL AND NOTIFY DR. AZAR. ALL NEEDS ATTENDED. WILL CONTINUE TO MONITOR .
[2017-05-25] MEDS: ATORVASTATIN 10 MG TABLET PO SCH (20:49)
[2017-05-25] MEDS: DOXAZOSIN 2 MG TABLET PO SCH (20:50)
[2017-05-25] MEDS: LORAZEPAM 0.5 MG TABLET PO PRN (20:53)
--- NOTE | 2017-05-25 21:15 | NUR ---
SPOKE WITH DR. AZAR TO INFORM HIM THAT PATIENT WANTS TO CANCEL THE PROCEDURE IN THE AM. INFORMED MD THAT PATIENT IS REFUSING TO DRINK ANYMORE GOLYTELY. MD WANTS PATIENT TO TRY AND DRINK 2 BOTTLES OF MAG-CITRATE FOR COLONOSCOPY PREP. MD CALLED AND ASKED, "WHAT IF PATIENT REFUSES TO DRINK THE MAG-CITRATE, SHOULD YOU BE CALLED BACK TO BE UPDATED SO SURGERY CAN BE CANCELED OR RESUMED?" DR. AZAR STILL WANTS TO PERFORM EGD EVEN IF THE COLONOSCOPY CAN NOT BE DONE. RETAIL SALES CLERK AND RN CHANDELIER MAKER NOTIFIED. PATIENT WILL REMAIN ON SCHEDULE FOR 0800AM AND WILL BE NPO AFTER MIDNIGHT. ALL NEEDS ATTENDED. WILL CONTINUE TO MONITOR.
[2017-05-25] MEDS ORDERED: MAGNESIUM CITRATE 296 ML BOTTLE PO ONE (21:30)
[2017-05-25] MEDS: MAGNESIUM CITRATE 296 ML BOTTLE PO ONE ×2 (22:17→22:19)
--- NOTE | 2017-05-25 22:30 | NUR ---
PATIENT RESTING IN BED. PATIENT TOOK ONE SIP OF THE MAG-CITRATE AND REFUSED. PATIENT STATED THAT SHE WOULD NOT BE ABLE TO DRINK ANYMORE. ALL NEEDS ATTENDED. WILL CONTINUE TO MONITOR.
[2017-05-26 05:23] LABS: *BILIRUBIN,URIN NEGATIVE (NEGATIVE); *BLOOD, URINE NEGATIVE (NEGATIVE); *CLARITY,URINE CLEAR (CLEAR); *COLOR,URINE YELLOW (YELLOW); *KETONES,URINE NEGATIVE (NEGATIVE); *UROBILINOGEN,URINE 0.2 E.U./dl (NORMAL); LEUKOCYTE ESTERASE ,URINE TRACE (NEGATIVE); NITRITE, URINE NEGATIVE (NEGATIVE); UGLUCOSE NEGATIVE (NEGATIVE)
[2017-05-26 05:27] LABS: *PROTEIN,URINE 3+ (NEGATIVE)
[2017-05-26 05:29] LABS: BACTERIA,URINE FEW /HPF (NONE SEEN); RBC,URINE 0-3 /HPF (0-3); SQUAMOUS EPITHELIAL CELL,UR FEW /HPF (NONE SEEN)
[2017-05-26] MEDS: hydrALAZINE HCL 50 MG TABLET PO SCH ×3 (06:00→21:51)
[2017-05-26] MEDS: BLOOD SUGAR DIAGNOSTIC 1 EACH STRIP VI SCH ×4 (06:33→20:37)
--- NOTE | 2017-05-26 06:40 | NUR ---
PATIENT AWAKE, RESTING IN BED. PATIENT HAS BEEN NPO SINCE MIDNIGHT FOR EGD THIS AM. CHEST XRAY AND EKG DONE. URINE SENT TO LAB ORDERED PER PROTOCOL. BLOOD SUGAR 118. ALL VS WNL. DENIES PAIN OR DISCOMFORT. NO RESP. DISTRESS NOTED. CALL LIGHT IN REACH. ALL NEED ATTENDED. WILL CONTINUE TO MONITOR.
[2017-05-26 07:15] LABS: BASOPHILS % (AUTO) 0.3 % (0.0-2.0); EOSINOPHILS % (AUTO) 12.9 % (0.0-7.0); HEMATOCRIT 24.4 % (37-47); HEMOGLOBIN 8.3 G/DL (12.0-16.0); LYMPHOCYTES # (AUTO) 0.7 K/UL (0.8-4.8); LYMPHOCYTES % (AUTO) 9.2 % (20.5-51.5); MEAN CORPUSCULAR HEMOGLOBIN 28.2 UUG (27.0-31.0); MEAN CORPUSCULAR HGB CONC 34 g/dL (32.0-37.0); MEAN CORPUSCULAR VOLUME 83.3 FL (81.0-99.0); MONOCYTES # (AUTO) 0.5 K/UL (0.1-1.30); MONOCYTES % (AUTO) 6.5 % (0.0-11.0); NEUTROPHILS # (AUTO) 5.9 K/UL (1.8-8.9); NEUTROPHILS % (AUTO) 71.1 % (38.5-71.5); PLATELET COUNT (AUTO) 239 K/UL (150-450); RED BLOOD CELL COUNT(AUTO) 2.93 MIL/UL (4.2-5.4); WHITE BLOOD COUNT (AUTO) 8.1 K/UL (4.0-11.2)
[2017-05-26 07:34] LABS: CARBON DIOXIDE 24 mmol/L (21-32); CHLORIDE 108 mmol/L (98-107); CREATININE 1.8 mg/dL (0.6-1.3); GLUCOSE 116 mg/dL (74-106); MAGNESIUM 2.5 mg/dL (1.8-2.4); PHOSPHOROUS 4.2 mg/dL (2.5-4.9); POTASSIUM 4.5 mmol/L (3.5-5.1); UREA NITROGEN, BLOOD 45 mg/dL (7-18)
--- NOTE | 2017-05-26 07:40 | NUR ---
RECEIVED PATIENT AWAKE IN BED, ALERT AND ORIENTED. NO COMPLAINTS OF SOB OR PAIN. O2 AT 2LPM O2 SAT AT 99%. WITH IV SALINE LOCK G20 PATENT AND INTACT. FOR EGD AT 9 AM TODAY.
--- NOTE | 2017-05-26 08:45 | NUR ---
MAINTAINED NPO STATUS AFTER MIDNIGHT. DENTURES AT BED SIDE, SILVER CHARM AT BED SIDE INSIDE CABINET IN A RED POUCH. LAST VOIDED AT 05:15. PRE-OP CHECKLIST COMPLETED. BROUGHT TO OR WITH OR STAFF VIA HOSPITAL BED.
[2017-05-26] MEDS: PANTOPRAZOLE SODIUM 40 MG VIAL IV SCH ×2 (09:00→20:33)
[2017-05-26] MEDS: ISOSORBIDE DINITRATE 20 MG TABLET PO SCH ×2 (09:00→20:46)
[2017-05-26] MEDS: CARVEDILOL 25 MG TABLET PO SCH ×2 (09:00→20:45)
[2017-05-26] MEDS: NIFEdipine XL 30 MG TABSR PO SCH (09:00)
[2017-05-26 09:41] VITALS: BP 134/60
--- NOTE | 2017-05-26 10:00 | NUR ---
BACK TO ARU, VIA HOSPITAL BED. ACCOMPANIED BY KARO/TRAIN DISPATCHER NURSE. IN STABLE CONDITION. AWAKE, ALERT AND ORIENTED X4. NO COMPLAINTS OF PAIN/DISCOMFORT. NOT IN ANY FORM OF DISTRESS. ON FULL LIQUID DIET AND ADVANCE TOLERATED. STILL WITH IV SALINE LOCK G20 PATENT AND INTACT O2 AT 2LPM
[2017-05-26] MEDS ORDERED: SUCRALFATE 1 G/10 ML LIQUID UDC PO SCH (11:30)
--- NOTE | 2017-05-26 13:10 | NUR ---
PATIENT ANXIOUS AND VERBALIZES SHE WANTS ATIVAN AND TO SLEEP BECAUSE SHE WAS NOT ABLE TO SLEEP LAST NIGHT. ATIVAN PRN GIVEN
[2017-05-26] MEDS: LORAZEPAM 0.5 MG TABLET PO PRN (13:13)
--- NOTE | 2017-05-26 15:41 | NUR ---
TOLERATING FULL LIQUIDS. NO NAUSEA/VOMITING OR ABDOMINAL PAIN NOTED. WITH LIQUID STOOLS, BLACK X1 EPISODE.
--- NOTE | 2017-05-26 18:26 | NUR ---
Patient had 3 episodes of loose black stools, non-foul smelling. Informed Dr. Darrell Coon. No new orders at this time, plan of for possible lab works for tomorrow.
--- NOTE | 2017-05-26 20:00 | NUR ---
RECEIVED PATIENT AWAKE, SITTING AT EDGE OF BED. A/O X4. DENIES ANY PAIN OR DISCOMFORT. ON O2 2L NC SATING 97%. NO RESP. DISTRESS NOTED. VS WNL. H/L INTACT AND NOTED TO LEFT FA #20 GAUGE. DENIES ANY N/V. CALL LIGHT IN REACH. ALL NEEDS ATTENDED, WILL CONTINUE TO MONITOR AND ASSESS.
[2017-05-26] MEDS: INSULIN REGULAR, HUMAN 300 UNIT/3 ML VIAL SQ PRN (20:37)
[2017-05-26] MEDS: ATORVASTATIN 10 MG TABLET PO SCH (20:40)
[2017-05-26] MEDS: DOXAZOSIN 2 MG TABLET PO SCH (20:45)
[2017-05-26] MEDS: ZOLPIDEM 5 MG TABLET PO PRN (23:30)
--- NOTE | 2017-05-27 06:01 | NUR ---
PATIENT ASLEEP IN BED. ON O2 2L NC SATING 97%. SLEPT WELL THROUGHOUT THE NIGHT. CALL LIGHT IN REACH. ALL NEEDS ATTENDED.
[2017-05-27] MEDS: hydrALAZINE HCL 50 MG TABLET PO SCH ×3 (06:25→21:14)
[2017-05-27] MEDS: BLOOD SUGAR DIAGNOSTIC 1 EACH STRIP VI SCH ×4 (06:27→21:20)
[2017-05-27] MEDS: PANTOPRAZOLE SODIUM 40 MG VIAL IV SCH ×2 (09:36→21:11)
[2017-05-27] MEDS: CARVEDILOL 25 MG TABLET PO SCH ×2 (09:37→21:12)
[2017-05-27] MEDS: ISOSORBIDE DINITRATE 20 MG TABLET PO SCH ×2 (09:37→21:14)
[2017-05-27] MEDS: NIFEdipine XL 30 MG TABSR PO SCH (09:38)
[2017-05-27] MEDS: LORAZEPAM 0.5 MG TABLET PO PRN (10:00)
[2017-05-27 10:39] VITALS: BP 150/61
--- NOTE | 2017-05-27 16:09 | NUR ---
DAILY NOTE ROOM AIR O2 SAT 96% AT REST. Addendum: 05/27/17 at 1613 by CONNOR HANDY RN CORRECTION TO NOTE ABOVE ROOM AIR SAT 86% ON ROOM AIR AT REST
--- NOTE | 2017-05-27 16:13 | NUR ---
DAILY NOTE ROOM AIR O2 SAT 86% AT REST.
--- NOTE | 2017-05-27 19:19 | NUR ---
Received report from NEGRITO Jacobs. Pt currnetly lying in the bed during the report. Pt watching TV, call light w/in reach. bed to lowest position. reminded to call for help, verbalized understanding
[2017-05-27] MEDS: ATORVASTATIN 10 MG TABLET PO SCH (21:14)
[2017-05-27] MEDS: DOXAZOSIN 2 MG TABLET PO SCH (21:15)
--- NOTE | 2017-05-27 21:30 | NUR ---
Given all due meds as prescribed. Legs are swollen non pitting , pulses palpable.Denies any SOB nor any pain.
[2017-05-27] MEDS: ZOLPIDEM 5 MG TABLET PO PRN (23:26)
[2017-05-27] MEDS ORDERED: CLONIDINE-TTS 1 PATCH TD SCH (23:30)
--- NOTE | 2017-05-27 23:30 | NUR ---
Given ambien for sleep, spongebath was done by the pt, changed gown.made her comfortable, prepped pt to sleep.
--- NOTE | 2017-05-28 | NUR ---
Asleep, bed to lowest position,call lights w/in reach
[2017-05-28] MEDS ORDERED: CLONIDINE-TTS 1 PATCH TD ONE (02:09)
[2017-05-28] MEDS: hydrALAZINE HCL 50 MG TABLET PO SCH ×2 (06:51→14:50)
[2017-05-28] MEDS: BLOOD SUGAR DIAGNOSTIC 1 EACH STRIP VI SCH ×3 (06:55→17:03)
--- NOTE | 2017-05-28 07:20 | NUR ---
Awake, ambulated to bathroom, report to NEGRITO Lemus
[2017-05-28 08:58] VITALS: BP 130/56
[2017-05-28] MEDS: NIFEdipine XL 30 MG TABSR PO SCH (09:25)
[2017-05-28] MEDS: ISOSORBIDE DINITRATE 20 MG TABLET PO SCH (09:26)
[2017-05-28] MEDS: CARVEDILOL 25 MG TABLET PO SCH (09:26)
[2017-05-28] MEDS: PANTOPRAZOLE SODIUM 40 MG VIAL IV SCH (09:26)
[2017-05-28] MEDS: LORAZEPAM 0.5 MG TABLET PO PRN (10:34)
--- NOTE | 2017-05-28 11:01 | NUR ---
WOUND CARE CONSULT PATIENT SEEN AND SKIN INTEGRITY ASSESSMENT DONE. PATIENT PRESENTS WITH INTACT SKIN, NO OPEN WOUNDS, JEF AT 20, PATIENT AMBULATORY WITH [facility]. WILL SEE PRN.
[2017-05-28 14:50] VITALS: BP 123/70
[2017-05-28] MEDS: INSULIN REGULAR, HUMAN 300 UNIT/3 ML VIAL SQ PRN (17:03)
--- NOTE | 2017-05-28 19:13 | NUR ---
pt discharged with grand daughter. pt given instructions along with prescriptions and discharge summary. pt verbalizes understanding about follow upw. no signs of acute distress vitals wnl. pt assisted to the car.
== END 2017-05-28 19:00 | disposition home or self-care (01) | DRG 291 ==
PROVIDERS: ADMIT Physical Medicine & Rehabilitation Pain Medicine; ATTEND Physical Medicine & Rehabilitation Pain Medicine
PROC: 30233N1 Transfusion of Nonautologous Red Blood Cells into Peripheral Vein, Percutaneous Approach (ICD-10-PCS; principal; 2017-05-15)
DX: I13.0 Hypertensive heart and chronic kidney disease with heart failure and stage 1 through stage 4 chronic kidney disease, or unspecified chronic kidney disease (principal); I50.33 Acute on chronic diastolic (congestive) heart failure; K29.71 Gastritis, unspecified, with bleeding; N17.9 Acute kidney failure, unspecified; N39.0 Urinary tract infection, site not specified; J84.9 Interstitial pulmonary disease, unspecified; D64.9 Anemia, unspecified; R53.1 Weakness; R06.02 Shortness of breath; R06.01 Orthopnea; Z90.5 Acquired absence of kidney; B96.20 Unspecified Escherichia coli [E. coli] as the cause of diseases classified elsewhere; D63.8 Anemia in other chronic diseases classified elsewhere; E11.22 Type 2 diabetes mellitus with diabetic chronic kidney disease; E66.9 Obesity, unspecified; Z68.33 Body mass index [BMI] 33.0-33.9, adult; E78.5 Hyperlipidemia, unspecified; G89.4 Chronic pain syndrome; I25.10 Atherosclerotic heart disease of native coronary artery without angina pectoris; I25.2 Old myocardial infarction; I70.0 Atherosclerosis of aorta; K21.9 Gastro-esophageal reflux disease without esophagitis; N18.3 Chronic kidney disease, stage 3 (moderate); Z87.442 Personal history of urinary calculi; Z82.49 Family history of ischemic heart disease and other diseases of the circulatory system; Z88.0 Allergy status to penicillin; Z88.1 Allergy status to other antibiotic agents; Z88.2 Allergy status to sulfonamides; M54.5 Low back pain; M19.90 Unspecified osteoarthritis, unspecified site; R19.7 Diarrhea, unspecified; Z88.6 Allergy status to analgesic agent; Z88.8 Allergy status to other drugs, medicaments and biological substances; G47.33 Obstructive sleep apnea (adult) (pediatric)
CPT/HCPCS: 36415; 36569; 71010; 83735; 84100; 85025; 85610; 86850; 86900; 86901; 86920; 87077; 87086; 92610; 93005; 97110; 97112; 97116; 97161; 97530; 97535; C9113; J1650; J1815; J1940; J7030; J7050; P9016-BL; P9021

== ENCOUNTER 2017-05-26 07:50 | Day surgery (SDC) | payer MEDICARE, OTHER ==
[~2017-05-26 07:50] MED LIST changes: -AMLO10TA4 PO; +ATOR20TA PO; +CARI350T27 PO; +CARV25TA2 PO; +CLON0.3T PO; +DOXA2TAB2 PO; +ENOX40DI SQ; +HYDR100T27 PO; +ISOS40TA16 PO; -METF10002 PO; +NIFE30TA89 PO; +PANT40TA4 PO; +ZOLP5TAB8 PO
[2017-05-26] MEDS ORDERED: LIDOCAINE HCL 1% 20 ML VIAL MC ONE (07:51)
[2017-05-26] MEDS ORDERED: IV NORMAL SALINE 1000 ML BAG IV ONE (07:51)
[2017-05-26] MEDS ORDERED: PROPOFOL 200 MG/20 ML BOTTLE IV ONE (07:51)
== END 2017-05-26 10:45 | disposition still patient (30) ==
LOC: DS 07:50
PROVIDERS: ATTEND Internal Medicine Gastroenterology
DX: K29.61 Other gastritis with bleeding (principal); K21.9 Gastro-esophageal reflux disease without esophagitis; D64.9 Anemia, unspecified; I25.10 Atherosclerotic heart disease of native coronary artery without angina pectoris; I21.3 ST elevation (STEMI) myocardial infarction of unspecified site; I11.0 Hypertensive heart disease with heart failure; I50.9 Heart failure, unspecified; I13.0 Hypertensive heart and chronic kidney disease with heart failure and stage 1 through stage 4 chronic kidney disease, or unspecified chronic kidney disease; E11.22 Type 2 diabetes mellitus with diabetic chronic kidney disease; G89.29 Other chronic pain; N18.3 Chronic kidney disease, stage 3 (moderate)
CPT/HCPCS: 43239; A4217; J3490 ×2; J7030

== ENCOUNTER 2017-10-31 13:12 | Inpatient (IN) | payer MEDICARE, OTHER ==
[2017-10-30 20:45] VITALS: BP 169/97
[~2017-10-31] VITALS: Ht 152.4 cm; Wt 95.3 kg
--- NOTE | 2017-10-31 13:30 | NUR ---
Pt triaged and placed in ER waiting room, no ER beds available at this time due to ED sat.
[2017-10-31 15:22] LABS: BASOPHILS % (AUTO) 0.7 % (0.0-2.0); EOSINOPHILS # (AUTO) 0.1 K/uL (0.0-0.7); EOSINOPHILS % (AUTO) 1.3 % (0.0-7.0); HEMATOCRIT 33.1 % (31.2-41.9); HEMOGLOBIN 10.8 g/dL (10.9-14.3); LYMPHOCYTES # (AUTO) 0.6 K/uL (20.0-40.0); LYMPHOCYTES % (AUTO) 9.2 % (20.5-51.5); MEAN CORPUSCULAR HEMOGLOBIN 29.4 uug (24.7-32.8); MEAN CORPUSCULAR HGB CONC 33 g/dL (32.3-35.6); MEAN CORPUSCULAR VOLUME 89.9 fL (75.5-95.3); MONOCYTES # (AUTO) 0.5 K/uL (2.0-10.0); MONOCYTES % (AUTO) 6.8 % (0.0-11.0); NEUTROPHILS # (AUTO) 5.8 K/uL (1.8-8.9); PLATELET COUNT (AUTO) 193 K/uL (179-408); RED BLOOD CELL COUNT(AUTO) 3.68 MIL/uL (3.63-4.92); WHITE BLOOD COUNT (AUTO) 7.1 K/uL (3.8-11.8)
[2017-10-31 15:30] LABS: CARBON DIOXIDE 26 mmol/L (21-32); CHLORIDE 112 mmol/L (98-107); CREATININE 2.3 mg/dL (0.6-1.3); GLUCOSE 109 mg/dL (74-106); UREA NITROGEN, BLOOD 29 mg/dL (7-18)
[2017-10-31 15:45] LABS: ALANINE AMINOTRANSFERASE 13 U/L (14-59); ALKALINE PHOSPHATASE 51 U/L (50-136); ASPARTATE AMINOTRANSFERASE 19 U/L (15-37); BILIRUBIN,DIRECT 0.1 mg/dL (0.0-0.2); BILIRUBIN,TOTAL 0.6 mg/dL (0.2-1.0); TOTAL PROTEIN, SERUM 6.1 g/dL (6.4-8.2)
[2017-10-31] MEDS ORDERED: LABETALOL HCL 100 MG/20 ML VIAL IV ONE (16:30)
[2017-10-31] MEDS ORDERED: MORPHINE SULFATE 2 MG/1 ML DISP.SYRIN IV ONE (16:30)
[2017-10-31] MEDS ORDERED: ONDANSETRON 4 MG/2 ML VIAL IV ONE (16:30)
[2017-10-31] MEDS ORDERED: NITROGLYCERIN OINT 1 GM PACKET TP ONE ×2 (16:30→16:57)
[2017-10-31] MEDS ORDERED: FUROSEMIDE 20 MG/2 ML VIAL IV ONE (16:30)
[2017-10-31] MEDS ORDERED: FUROSEMIDE 40 MG/4 ML VIAL ONE (16:57)
[2017-10-31] MEDS ORDERED: ONDANSETRON 4 MG/2 ML VIAL ONE (16:58)
[2017-10-31] MEDS ORDERED: LABETALOL HCL 100 MG/20 ML VIAL ONE (16:58)
[2017-10-31] MEDS ORDERED: POTASSIUM BICARBONATE/CIT AC 25 MEQ TABLET.EFF PO ONE (17:00)
--- NOTE | 2017-10-31 17:00 | NUR ---
pt requesting garner to be placed, encouraged use of bed jurado first. pt agreed.
--- NOTE | 2017-10-31 17:25 | NUR ---
repeat EKG done per Dr. Koehler order. result given to Dr. Koehler
[2017-10-31] MEDS ORDERED: MORPHINE SULFATE 4 MG/1 ML DISP.SYRIN ONE (18:23)
[2017-10-31] MEDS ORDERED: POTASSIUM BICARBONATE/CIT AC 25 MEQ TABLET.EFF ONE (18:30)
--- NOTE | 2017-10-31 18:43 | NUR ---
pt in bed comfortable eating.
--- NOTE | 2017-10-31 19:52 | NUR ---
SBAR REPORT TO SAMANTHA MAHAN, BELONGINGS LIST DONE,ADMIT ORDER WRITTEN, PT RESTING, EYES CLOSED, PT ON 4 L O2 VIA NASAL CANNULA.
[2017-10-31] MEDS ORDERED: ONDANSETRON 4 MG/2 ML VIAL IV PRN (20:15)
[2017-10-31] MEDS ORDERED: ACETAMINOPHEN 325 MG TABLET PO PRN (20:15)
[2017-10-31] MEDS ORDERED: LORAZEPAM 1 MG TABLET PO PRN (20:15)
[2017-10-31] MEDS ORDERED: BISACODYL 10 MG SUPP.RECT RC PRN (20:15)
[2017-10-31] MEDS ORDERED: MORPHINE SULFATE 2 MG/1 ML DISP.SYRIN IV PRN (20:15)
[2017-10-31] MEDS ORDERED: NITROGLYCERIN OINT 1 GM PACKET TP PRN (20:15)
[2017-10-31] MEDS ORDERED: ZOLPIDEM 5 MG TABLET PO PRN (20:15)
[2017-10-31] MEDS: CARISOPRODOL 350 MG TABLET PO SCH (20:15)
[2017-10-31 20:45] VITALS: BP 169/97
[2017-10-31] MEDS: DOCUSATE SODIUM 100 MG CAPSULE PO SCH (21:42)
[2017-10-31] MEDS: FUROSEMIDE 20 MG/2 ML VIAL IV SCH (21:42)
[2017-10-31] MEDS: CARVEDILOL 25 MG TABLET PO SCH (21:43)
[2017-10-31] MEDS ORDERED: DOCUSATE SODIUM 100 MG CAPSULE PO ONE (21:51)
[2017-10-31] MEDS ORDERED: CARVEDILOL 25 MG TABLET ONE (21:51)
[2017-10-31] MEDS ORDERED: FUROSEMIDE 20 MG/2 ML VIAL ONE (21:51)
[2017-10-31] MEDS ORDERED: ZOLPIDEM 5 MG TABLET ONE (21:52)
[2017-11-01] VITALS (7 sets, daily range): BP systolic 113–167; BP diastolic 60–76
[2017-11-01] MEDS ORDERED: LEVALBUTEROL HCL NEB 0.63 MG/3 ML NEBU NEB SCH (01:30)
--- NOTE | 2017-11-01 02:59 | NUR ---
Received pt from ED via stretcher at 2014. Pt was able to transfer from stretcher to bed without difficulty with assistance of one aide. Pt has her own cane with her, it is at bedside. Respirations have been even, unlabored, no increased work of breathing noted or use of accessory muscles. Continues on 4L NC. No cough noted. HR regular rate/rhythm. Denies any chest pain, nausea or dizziness. Skin is dry, pink and warm, intact. Did note bilateral edema from just below knees throughout LE, 3+ pitting. Pt immediately voided in bedpan (having recieved IV Lasix in ED). Tolerated well. Updated pt on POC for night, questions answered. Bed in low position, wheels locked, call light use reviewed and is within reach, lighting adjusted for pt safety. Stat troponin drawn at 1999 by qa architect - result noted. Pt requested her sleeping pill, given with pm meds and tolerating well. Continuing to monitor for physiological changes and pt safety.
[2017-11-01 06:07] LABS: ABG BASE EXCESS -0.2 mmol/L; ABG HCO3 26.6 mmol/L; ABG PCO2 54.2 mmHg (35.0-45.0); ABG PH 7.309 (7.350-7.450); ABG PO2 116.1 mmHg (75.0-100.0); ABG SITE LEFT RADIAL; ABG TOTAL HEMOGLOBIN 10.6 G/dL (12.0-16.0); COHb 0.7 % (0.5-1.5); MetHb 0.3 % (0.0-1.5); O2Hb 97.2 % (94.0-97.0); VENT MODE Nasal Cannula
[2017-11-01] MEDS ORDERED: PANTOPRAZOLE SODIUM 40 MG TABLET.DR PO SCH (07:30)
[2017-11-01 10:17] LABS: BASOPHILS % (AUTO) 0.5 % (0.0-2.0); EOSINOPHILS # (AUTO) 0.2 K/uL (0.0-0.7); EOSINOPHILS % (AUTO) 2.6 % (0.0-7.0); HEMATOCRIT 32.4 % (31.2-41.9); HEMOGLOBIN 10.8 g/dL (10.9-14.3); LYMPHOCYTES # (AUTO) 0.6 K/uL (20.0-40.0); MEAN CORPUSCULAR HEMOGLOBIN 30.6 uug (24.7-32.8); MEAN CORPUSCULAR HGB CONC 33 g/dL (32.3-35.6); MEAN CORPUSCULAR VOLUME 91.8 fL (75.5-95.3); MONOCYTES # (AUTO) 0.4 K/uL (2.0-10.0); MONOCYTES % (AUTO) 6.9 % (0.0-11.0); NEUTROPHILS # (AUTO) 4.6 K/uL (1.8-8.9); PLATELET COUNT (AUTO) 183 K/uL (179-408); RED BLOOD CELL COUNT(AUTO) 3.53 MIL/uL (3.63-4.92); WHITE BLOOD COUNT (AUTO) 5.8 K/uL (3.8-11.8)
[2017-11-01 10:34] LABS: IRON, SERUM 41 ug/dL (50-175)
[2017-11-01 10:38] LABS: THYROID STIMULATING HORMONE 1.519 mIU/mL (0.358-3.740)
[2017-11-01] MEDS: FUROSEMIDE 20 MG/2 ML VIAL IV SCH ×2 (11:03→21:59)
[2017-11-01] MEDS: PANTOPRAZOLE SODIUM 40 MG TABLET.DR PO SCH (11:03)
[2017-11-01] MEDS: ISOSORBIDE DINITRATE 20 MG TABLET PO SCH ×2 (11:04→22:00)
[2017-11-01] MEDS: CARISOPRODOL 350 MG TABLET PO SCH ×3 (11:04→18:17)
[2017-11-01] MEDS: CARVEDILOL 25 MG TABLET PO SCH ×2 (11:04→22:00)
[2017-11-01] MEDS: hydrALAZINE HCL 50 MG TABLET PO SCH ×3 (11:14→22:45)
[2017-11-01] MEDS: MORPHINE SULFATE 4 MG/1 ML DISP.SYRIN IV PRN ×2 (11:15→22:01)
[2017-11-01 11:25] LABS: ALKALINE PHOSPHATASE 48 U/L (50-136); BILIRUBIN,TOTAL 0.5 mg/dL (0.2-1.0); CHOLESTEROL 208 mg/dL (<200); GLUCOSE 90 mg/dL (74-106); HDL CHOLESTEROL 74 mg/dL (40-60); MAGNESIUM 1.9 mg/dL (1.8-2.4); PHOSPHOROUS 5.2 mg/dL (2.5-4.9); TOTAL PROTEIN, SERUM 5.9 g/dL (6.4-8.2); TRIGLYCERIDES 131 MG/DL (30-150); UREA NITROGEN, BLOOD 32 mg/dL (7-18)
[2017-11-01 11:45] LABS: CARBON DIOXIDE 26 mmol/L (21-32); CHLORIDE 114 mmol/L (98-107); POTASSIUM 3.9 mmol/L (3.5-5.1)
[2017-11-01 11:46] LABS: ALANINE AMINOTRANSFERASE 9 U/L (14-59); ASPARTATE AMINOTRANSFERASE 19 U/L (15-37); CREATININE 2.6 mg/dL (0.6-1.3)
[2017-11-01] MEDS: ALBUTEROL SULFATE 1.25 MG/3 ML NEBU NEB SCH ×2 (13:11→19:10)
--- NOTE | 2017-11-01 14:00 | NUR ---
apresoline started at 1100
[2017-11-01] MEDS: DOCUSATE SODIUM 100 MG CAPSULE PO SCH (22:00)
[2017-11-02] MEDS: ALBUTEROL SULFATE 1.25 MG/3 ML NEBU NEB SCH ×4 (01:28→19:01)
[2017-11-02 03:30] VITALS: BP 131/68
[2017-11-02 03:40] LABS: *BILIRUBIN,URIN NEGATIVE (NEGATIVE); *BLOOD, URINE NEGATIVE (NEGATIVE); *CLARITY,URINE SLIGHTLY CLOUDY (CLEAR); *COLOR,URINE YELLOW (YELLOW); *KETONES,URINE NEGATIVE (NEGATIVE); *UROBILINOGEN,URINE 0.2 E.U./dl (NORMAL); LEUKOCYTE ESTERASE ,URINE NEGATIVE (NEGATIVE); NITRITE, URINE NEGATIVE (NEGATIVE); UGLUCOSE NEGATIVE (NEGATIVE)
[2017-11-02 03:47] LABS: *PROTEIN,URINE 3+ (NEGATIVE)
[2017-11-02 03:54] LABS: *CREATININE,URINE 111.4 mg/dL (30-125); *URINE TOTAL PROTEIN RANDOM 531.3 mg/dL (<150/24HR)
[2017-11-02 04:03] LABS: BACTERIA,URINE NONE SEEN /HPF (NONE SEEN); RBC,URINE 0-3 /HPF (0-3); SQUAMOUS EPITHELIAL CELL,UR MODERATE /HPF (NONE SEEN); URINE AMORPHOUS URATE MODERATE /HPF; WBC,URINE 0-3 /HPF (0-3); YEAST,URINE MANY /HPF (NONE SEEN)
--- NOTE | 2017-11-02 05:52 | NUR ---
NSG: NO ACUTE DISTRESS NOTED. DENIES DISCOMFORT. MEDICATED WITH MORPHINE 2MG X 1 WITH C/O SHOULDER PAIN AND HEADACHE. KEPT CLEAN AND DRY. REPOSITIONED. CONT WITH TREATMENT PLAN.
[2017-11-02] MEDS: PANTOPRAZOLE SODIUM 40 MG TABLET.DR PO SCH (06:41)
[2017-11-02] MEDS: hydrALAZINE HCL 50 MG TABLET PO SCH ×3 (06:42→22:43)
[2017-11-02 07:33] LABS: BASOPHILS # (AUTO) 0.1 K/uL (0.0-8.0); BASOPHILS % (AUTO) 0.7 % (0.0-2.0); EOSINOPHILS # (AUTO) 0.1 K/uL (0.0-0.7); EOSINOPHILS % (AUTO) 1.9 % (0.0-7.0); HEMOGLOBIN 10.5 g/dL (10.9-14.3); LYMPHOCYTES # (AUTO) 0.8 K/uL (20.0-40.0); LYMPHOCYTES % (AUTO) 10.4 % (20.5-51.5); MEAN CORPUSCULAR HEMOGLOBIN 30.2 uug (24.7-32.8); MEAN CORPUSCULAR HGB CONC 33 g/dL (32.3-35.6); MEAN CORPUSCULAR VOLUME 92.4 fL (75.5-95.3); MONOCYTES # (AUTO) 0.5 K/uL (2.0-10.0); MONOCYTES % (AUTO) 6.1 % (0.0-11.0); NEUTROPHILS # (AUTO) 6.2 K/uL (1.8-8.9); NEUTROPHILS % (AUTO) 80.9 % (38.5-71.5); PLATELET COUNT (AUTO) 184 K/uL (179-408); RED BLOOD CELL COUNT(AUTO) 3.46 MIL/uL (3.63-4.92); WHITE BLOOD COUNT (AUTO) 7.7 K/uL (3.8-11.8)
[2017-11-02 07:41] LABS: ALANINE AMINOTRANSFERASE 7 U/L (14-59); ALKALINE PHOSPHATASE 45 U/L (50-136); ASPARTATE AMINOTRANSFERASE 27 U/L (15-37); BILIRUBIN,TOTAL 0.3 mg/dL (0.2-1.0); CARBON DIOXIDE 28 mmol/L (21-32); CHLORIDE 111 mmol/L (98-107); CREATININE 2.7 mg/dL (0.6-1.3); GLUCOSE 115 mg/dL (74-106); PHOSPHOROUS 5.3 mg/dL (2.5-4.9); POTASSIUM 4.3 mmol/L (3.5-5.1); UREA NITROGEN, BLOOD 33 mg/dL (7-18)
[2017-11-02 08:00] VITALS: BP 184/82
[2017-11-02] MEDS: FUROSEMIDE 20 MG/2 ML VIAL IV SCH ×2 (10:11→20:25)
[2017-11-02] MEDS: CARISOPRODOL 350 MG TABLET PO SCH ×3 (10:12→17:00)
[2017-11-02] MEDS: CARVEDILOL 25 MG TABLET PO SCH ×2 (10:12→20:27)
[2017-11-02] MEDS: ISOSORBIDE DINITRATE 20 MG TABLET PO SCH ×2 (10:37→20:27)
[2017-11-02 13:03] LABS: ABG BASE EXCESS -2.6 mmol/L; ABG PCO2 57.1 mmHg (35.0-45.0); ABG PO2 117.3 mmHg (75.0-100.0); ABG SITE RIGHT RADIAL; ABG TOTAL HEMOGLOBIN 11.3 G/dL (12.0-16.0); COHb 0.8 % (0.5-1.5); MetHb 0.5 % (0.0-1.5); O2Hb 97.1 % (94.0-97.0); VENT MODE Nasal Cannula
[2017-11-02 16:00] VITALS: BP 120/51
[2017-11-02 19:30] VITALS: BP 138/76
--- NOTE | 2017-11-02 20:00 | NUR ---
AWAKE ALERT. FAMILY AT BEDSIDE, RESTING COMFORTABY 02 AT 2 LTERS . NO SOB REFUSED COLACE, MADE COMFORTABLE.
[2017-11-02] MEDS: DOCUSATE SODIUM 100 MG CAPSULE PO SCH (21:00)
[2017-11-03] MEDS: ALBUTEROL SULFATE 1.25 MG/3 ML NEBU NEB SCH ×4 (01:07→20:13)
[2017-11-03 04:00] VITALS: BP 157/74
[2017-11-03] MEDS: hydrALAZINE HCL 50 MG TABLET PO SCH ×3 (05:23→23:29)
[2017-11-03] MEDS: PANTOPRAZOLE SODIUM 40 MG TABLET.DR PO SCH (05:24)
[2017-11-03 08:33] LABS: BASOPHILS % (AUTO) 0.5 % (0.0-2.0); EOSINOPHILS % (AUTO) 0.2 % (0.0-7.0); HEMATOCRIT 32.8 % (31.2-41.9); HEMOGLOBIN 10.7 g/dL (10.9-14.3); LYMPHOCYTES # (AUTO) 0.6 K/uL (20.0-40.0); LYMPHOCYTES % (AUTO) 7.2 % (20.5-51.5); MEAN CORPUSCULAR HGB CONC 33 g/dL (32.3-35.6); MONOCYTES # (AUTO) 0.4 K/uL (2.0-10.0); MONOCYTES % (AUTO) 4.4 % (0.0-11.0); NEUTROPHILS # (AUTO) 7.4 K/uL (1.8-8.9); NEUTROPHILS % (AUTO) 87.7 % (38.5-71.5); PLATELET COUNT (AUTO) 208 K/uL (179-408); RED BLOOD CELL COUNT(AUTO) 3.56 MIL/uL (3.63-4.92); WHITE BLOOD COUNT (AUTO) 8.5 K/uL (3.8-11.8)
[2017-11-03] MEDS: FUROSEMIDE 20 MG/2 ML VIAL IV SCH (08:45)
[2017-11-03] MEDS: CARVEDILOL 25 MG TABLET PO SCH ×2 (08:45→22:56)
[2017-11-03] MEDS: ISOSORBIDE DINITRATE 20 MG TABLET PO SCH ×2 (08:45→22:57)
[2017-11-03] MEDS: CARISOPRODOL 350 MG TABLET PO SCH ×3 (09:00→16:12)
[2017-11-03 09:02] LABS: ALANINE AMINOTRANSFERASE 13 U/L (14-59); ALKALINE PHOSPHATASE 50 U/L (50-136); ASPARTATE AMINOTRANSFERASE 17 U/L (15-37); BILIRUBIN,TOTAL 0.4 mg/dL (0.2-1.0); CARBON DIOXIDE 27 mmol/L (21-32); CHLORIDE 110 mmol/L (98-107); CREATININE 2.9 mg/dL (0.6-1.3); GLUCOSE 180 mg/dL (74-106); PHOSPHOROUS 5.3 mg/dL (2.5-4.9); POTASSIUM 4.2 mmol/L (3.5-5.1); TOTAL PROTEIN, SERUM 6.5 g/dL (6.4-8.2); UREA NITROGEN, BLOOD 36 mg/dL (7-18)
--- NOTE | 2017-11-03 09:25 | NUR ---
PATIENT COMPLAINED OF GENERALISED PAIN MORE SO ON HER CHEST AREA MEDICATED WITH MORPHINE ORDERED O2 ORDERED WITH SATS AT 95% PATIENT MADE COMFORTABLE AND WILL CONTINUE TO OBSERVE.
[2017-11-03] MEDS: MORPHINE SULFATE 4 MG/1 ML DISP.SYRIN IV PRN (09:27)
[2017-11-03 12:09] VITALS: BP 155/78
--- NOTE | 2017-11-03 13:00 | NUR ---
PATIENTS DAUGHTER HERE AT THE BEDSIDE AND SHE STATED THAT SHE WANTS TO TALK TO THE DOCTOR IN REGARDS TO HER MOMS CONDITION PATIENT AT THIS TIME STATED THAT SHE FEELS LIKE SHE IS SHORT OF BREATH SHE IS ON O2 AT 2L/M BY NASAL CANULA WITH SATURATION AT 96%.SPOKE WITH KATHI VIDAL NP AND HE STATED THAT HE ALREADY SEEN AND EXAMINED PATIENT AND THAT HE CALLED THE GREENHOUSE ASSISTANT DR HAGER TO SEE PATIENT TODAY.
--- NOTE | 2017-11-03 13:15 | NUR ---
BLOOD PRESSURE IS 155/78 DUE HYDRALAZINE GIVEN AND WILL CONTINUE TO OBSERVE.
[2017-11-03 15:26] VITALS: BP 118/73
--- NOTE | 2017-11-03 16:13 | NUR ---
PATIENT CONTINUES TO REFUSE TO TAKE SOMA DESPITE THE FACT THAT ITS PART OF HER HOME MEDICATIONS WILL INFORM THE DOCTOR
--- NOTE | 2017-11-03 17:44 | NUR ---
DR CRISTINA MOLD RUNNER HERE TO SEE PATIENT AND I NOTIFIED HIM THAT THE PATIENT HAD AN EPISODE WHERE SHE COMPLAINED THAT SHE IS HAVING DIFFICULTY BREATHING AND SHE IS ON O2 AND HER SATURATION WAS 96 % AND THE MATERIAL HANDLER FLOORPERSON WAS AWARE AND HE STATED OKAY WILL SEE PATIENT.
--- NOTE | 2017-11-03 18:26 | NUR ---
DR MORENO HERE AND SEEN PATIENT WITH NEW ORDERS AND NOTED.
[2017-11-03 19:30] VITALS: BP 155/75
[2017-11-03] MEDS ORDERED: FUROSEMIDE 20 MG/2 ML VIAL IV SCH (21:00)
[2017-11-03] MEDS: DOCUSATE SODIUM 100 MG CAPSULE PO SCH (22:56)
[2017-11-03] MEDS: FUROSEMIDE 40 MG/4 ML VIAL IVP SCH (22:58)
[2017-11-04] MEDS: ALBUTEROL SULFATE 1.25 MG/3 ML NEBU NEB SCH ×4 (00:38→19:11)
[2017-11-04 04:00] VITALS: BP 153/60
--- NOTE | 2017-11-04 05:30 | NUR ---
PT SLEPT COMFORTABLY. PT BLOOD PRESSURE IS 153/60, O2 97. MEDICATION GIVEN TO THE PT. DENIES PAIN.IV SITE INTACT AND PATENT. SAFETY AND COMFORT PROVIDED.
[2017-11-04] MEDS: PANTOPRAZOLE SODIUM 40 MG TABLET.DR PO SCH (06:10)
[2017-11-04] MEDS: hydrALAZINE HCL 50 MG TABLET PO SCH ×3 (06:11→19:54)
--- NOTE | 2017-11-04 07:30 | NUR ---
RECEIVED PATIENT IN BED AWAKE ALERT AND ORIENTED STATED FEELS COMFORTABLE AT THIS TIME STATED SLEPT WELL LAST NOC REMAIN ON O2 AT 2L/M BY NASAL CANULA WITH NO SHORTNESS OF BREATH AT THIS TIME MADE COMFORTABLE AND WILL CONTINUE TO OBSERVE
--- NOTE | 2017-11-04 08:13 | NUR ---
PATIENT SEEN AND EXAMINED BY DR RIBERA WITH NEW ORDERS AND NOTED
[2017-11-04] MEDS: CARISOPRODOL 350 MG TABLET PO SCH ×3 (09:00→17:00)
[2017-11-04] MEDS: FUROSEMIDE 40 MG/4 ML VIAL IVP SCH (09:11)
[2017-11-04] MEDS: CARVEDILOL 25 MG TABLET PO SCH ×2 (09:11→19:55)
[2017-11-04] MEDS: ISOSORBIDE DINITRATE 20 MG TABLET PO SCH ×2 (09:14→19:55)
[2017-11-04 11:22] VITALS: BP 130/68
--- NOTE | 2017-11-04 12:06 | NUR ---
PATIENT SEEN AND EXAMINED BY DR ELIZABETH GUARDADO WITH HER DAUGHTER AT THE BEDSIDE AND PLANS FOR DISCHARGE EITHER TO HOME OR SNF AWAITING FOR ORDERS.
--- NOTE | 2017-11-04 12:26 | NUR ---
PATIENT CONTINUES TO REFUSE SOMA AND PATIENT AND HER DAUGHTER STATED THAT SHE TAKES IT ONLY ONE TO TWO TIMES A DAY AT HOME DR ELIZABETH GUARDADO AWARE WITH NO NEW ORDERS AT THIS TIME.D/C PLANNING PATIENT AND HER DAUGHTER AWARE.
--- NOTE | 2017-11-04 13:29 | NUR ---
ORDER FOR THORACENTESIS TODAY AND THEN DISCHARGE PATIENT HOME TODAY.
--- NOTE | 2017-11-04 13:41 | NUR ---
spoke to dr garza about [facility] and he said he will contact me once hes done with lumbar puncture at [facility]
[2017-11-04 15:22] VITALS: BP 132/64
[2017-11-04 19:30] VITALS: BP 163/75
[2017-11-04] MEDS: DOCUSATE SODIUM 100 MG CAPSULE PO SCH (19:55)
[2017-11-04 20:46] VITALS: BP_SYST 142; BP_SYST 163; BP_DIAS 115; BP_DIAS 75
--- NOTE | 2017-11-04 20:50 | NUR ---
Pt picked up by ambulance to be transferred to [facility]. Patient is alert, in no distress. Patient has no IV site, garner cath intact/patent, emptied out, ID band removed, belongings with patient, discharge documents with paramedics/patient. Patient was transported via gurney. VS stable, all 2100 scheduled meds given, paramedics notified.
--- NOTE | 2017-11-04 22:32 | NUR ---
EDIT TIME: VS TAKEN AT 1930, NOT 2046 Addendum: 11/04/17 at 2236 by NICK ALVARADO RN Amended: Links added.
[2017-11-05] MEDS ORDERED: FUROSEMIDE 40 MG/4 ML VIAL IVP SCH (09:00)
== END 2017-11-04 21:00 | DRG 291 ==
LOC: ER 13:13 → TELE 19:51 → MED 11-02 23:15
PROVIDERS: ADMIT Internal Medicine; ATTEND Internal Medicine
PROC: 0W9B3ZZ Drainage of Left Pleural Cavity, Percutaneous Approach (ICD-10-PCS; principal; 2017-11-04)
DX: I13.0 Hypertensive heart and chronic kidney disease with heart failure and stage 1 through stage 4 chronic kidney disease, or unspecified chronic kidney disease (principal); J96.21 Acute and chronic respiratory failure with hypoxia; N17.0 Acute kidney failure with tubular necrosis; N01.9 Rapidly progressive nephritic syndrome with unspecified morphologic changes; E44.0 Moderate protein-calorie malnutrition; J91.8 Pleural effusion in other conditions classified elsewhere; D68.59 Other primary thrombophilia; N18.4 Chronic kidney disease, stage 4 (severe); E11.22 Type 2 diabetes mellitus with diabetic chronic kidney disease; J96.22 Acute and chronic respiratory failure with hypercapnia; E87.0 Hyperosmolality and hypernatremia; I50.32 Chronic diastolic (congestive) heart failure; Z68.41 Body mass index [BMI] 40.0-44.9, adult; E87.6 Hypokalemia; E66.01 Morbid (severe) obesity due to excess calories; Z99.81 Dependence on supplemental oxygen; F41.9 Anxiety disorder, unspecified; I25.2 Old myocardial infarction; Z87.01 Personal history of pneumonia (recurrent); Z90.5 Acquired absence of kidney; Z90.710 Acquired absence of both cervix and uterus; Z87.442 Personal history of urinary calculi; Z88.6 Allergy status to analgesic agent; Z88.1 Allergy status to other antibiotic agents; Z88.0 Allergy status to penicillin; Z88.2 Allergy status to sulfonamides; E78.5 Hyperlipidemia, unspecified; D64.9 Anemia, unspecified; J44.9 Chronic obstructive pulmonary disease, unspecified; I25.10 Atherosclerotic heart disease of native coronary artery without angina pectoris; Z77.22 Contact with and (suspected) exposure to environmental tobacco smoke (acute) (chronic); Z79.899 Other long term (current) drug therapy; Z79.82 Long term (current) use of aspirin; Z82.49 Family history of ischemic heart disease and other diseases of the circulatory system; K21.9 Gastro-esophageal reflux disease without esophagitis; G47.33 Obstructive sleep apnea (adult) (pediatric)
CPT/HCPCS: 32555; 36415; 36600; 70030-TC; 71010; 71045; 83550; 83735; 84100; 84156; 84300; 84443; 85025; 85730; 87077; 87086; 93005; 93307; 93880; 94640; 97110; A4663; J1940; J2270; J2405; J3490